=== PATIENT | male | born 1960 | race Caucasian/White ===

== ENCOUNTER → 2017-01-30 | Outpatient (REF) | payer OTHER, SELFPAY | LOC: M LAB REF 13:25 | PROVIDERS: ATTEND Dentist Oral and Maxillofacial Surgery | DX: C03.9 Malignant neoplasm of gum, unspecified (principal) ==

== ENCOUNTER → 2017-05-22 | Outpatient (CLI) | payer BC | LOC: M ONCR 08:56 | DX: C41.1 Malignant neoplasm of mandible (principal) | CPT/HCPCS: G0463 ==

== ENCOUNTER 2017-06-04 09:34 | Outpatient (RCR) | payer BC | END 2017-06-06 | LOC: M ONCR 06-05 09:34 | DX: C41.1 Malignant neoplasm of mandible (principal) | CPT/HCPCS: 77334 ==

== ENCOUNTER 2017-06-04 14:01 | Outpatient (CLI) | payer BC | END 2017-08-29 | LOC: M ONCR 14:01 | DX: C41.1 Malignant neoplasm of mandible (principal) | CPT/HCPCS: G0463 ==

== ENCOUNTER → 2017-06-04 | Outpatient (CLI) | payer BC | LOC: M RAD 13:55 | DX: C41.1 Malignant neoplasm of mandible (principal); Z88.0 Allergy status to penicillin ==

== ENCOUNTER 2017-06-07 09:38 | Outpatient (RCR) | payer BC | END 2017-07-04 | LOC: M ONCR 09:38 | DX: C41.1 Malignant neoplasm of mandible (principal) | CPT/HCPCS: 77300 ==

== ENCOUNTER 2017-06-14 08:09 | Day surgery (SDC) | payer BC ==
[2017-06-14] MEDS: NS 1,000 ML IV (08:29)
[2017-06-14] MEDS ORDERED: PROPOFOL 200 MG/20 ML VIAL As Ordered ×3 (09:07→09:13)
[2017-06-14] MEDS ORDERED: LIDOCAINE 2% INJ 100 MG/5 ML SDV (FOR ANES.) As Ordered (09:07)
[2017-06-14] MEDS ORDERED: LevoFLOXacin(LEVAQUIN)500 MG/100 ML BAG (J1956) As Ordered (09:46)
[2017-06-14] MEDS ORDERED: NORCO, ANEXSIA 5/325MG TABLET (HYDROcodone/ACETAMINOPHEN) PO (10:00)
[2017-06-14] MEDS ORDERED: NS 1,000 ML IV (10:00)
[2017-06-14] MEDS: LevoFLOXacin IV 500 MG in APPROPRIATE DILUENT 1 EA IV (10:00)
[2017-06-14] MEDS ORDERED: MORPHINE 2 MG/ML 1ML SYRINGE (J2270) IV (10:00)
[2017-06-14] MEDS: KETOROLAC 30 MG/ML VIAL (J1885) IV (10:42)
[2017-06-15] MEDS ORDERED: MORPHINE 4 MG/ML 1ML VIAL (J2270) IV (08:15)
== END 2017-06-14 15:10 | disposition home or self-care (01) ==
LOC: M OPP 15:10
DX: R13.10 Dysphagia, unspecified (principal); C41.1 Malignant neoplasm of mandible; R06.83 Snoring; Z88.0 Allergy status to penicillin
CPT/HCPCS: 43246

== ENCOUNTER 2017-06-22 12:16 | Outpatient (RCR) | payer BC | END 2017-07-04 | LOC: M ST 12:16 | DX: Z51.89 Encounter for other specified aftercare (principal); R13.10 Dysphagia, unspecified | CPT/HCPCS: 92610 ==

== ENCOUNTER 2017-07-05 10:26 | Outpatient (RCR) | payer BC | END 2017-08-04 | LOC: M ONCR 10:26 | DX: C41.1 Malignant neoplasm of mandible (principal) | CPT/HCPCS: 77300 ==

== ENCOUNTER → 2017-12-05 | Outpatient (CLI) | payer BC | LOC: M ONCR 15:07 | DX: C41.1 Malignant neoplasm of mandible (principal) | CPT/HCPCS: G0463 ==

== ENCOUNTER → 2018-02-21 | Outpatient (REF) | payer BC ==
[2018-02-21 17:41] LABS: ANION GAP 8 MEQ/L (8-16); BLOOD UREA NITROGEN 16 MG/DL (7-18); CALCIUM LEVEL 8.5 MG/DL (8.5-10.1); CARBON DIOXIDE LEVEL 28 MEQ/L (21-32); CHLORIDE LEVEL 105 MEQ/L (98-107); CHOLESTEROL LEVEL 174 MG/DL (<200); CREATININE FOR GFR 0.96 MG/DL (0.70-1.30); GLOMERULAR FILTRATION RATE > 60.0 (>56); GLUCOSE, FASTING 80 MG/DL (70-100); HDL CHOLESTEROL 50 MG/DL (>40); LDL CHOLESTEROL 115 MG/DL (<100); NON-HDL-C 124 MG/DL; POTASSIUM SERUM 4.1 MEQ/L (3.5-5.1); PSA SCREENING 0.68 NG/ML (< 4.0); SODIUM LEVEL 141 MEQ/L (136-145); TRIGLYCERIDES LEVEL 46 MG/DL (<150)
[2018-02-21 17:56] LABS: ESTIMATED AVERAGE GLUCOSE 108 MG/DL (60-110); HEMOGLOBIN A1c 5.4 %
== END ==
LOC: M SFHCPLAZ 15:10
DX: Z13.1 Encounter for screening for diabetes mellitus (principal); Z13.220 Encounter for screening for lipoid disorders; Z12.5 Encounter for screening for malignant neoplasm of prostate

== ENCOUNTER → 2019-01-24 | Outpatient (CLI) | payer BC ==
[~2019-01-24] MED LIST: GLUC1CAP10 PO; MULT1TAB10 PO; NYST50SS SS; PERC5TAB12 PO
[2019-01-24 09:08] LABS: BASO % 0.2 % (0.0-1.0); EOS # 0.1 10^3/uL (0.0-0.5); EOS % 0.9 % (0.0-3.0); HEMATOCRIT 43.2 % (42.0-52.0); HEMOGLOBIN 14.8 g/dl (13.5-17.5); LYMPH # 0.8 10^3/uL (1.5-5.0); MEAN CORPUSCULAR HGB CONC 34.3 g/dl (32.0-36.5); MEAN CORPUSCULAR VOLUME 90.4 fl (80.0-96.0); MONO # 0.5 10^3/uL (0.0-0.8); MONO % 8.6 % (0.0-5.0); NEUTROPHILS % 75.1 % (36.0-66.0); PLATELET COUNT, AUTOMATED 176 10^3/uL (150-450); RED BLOOD COUNT 4.78 10^6/uL (4.30-6.10); WHITE BLOOD COUNT 5.4 10^3/uL (4.0-10.0)
--- NOTE | 2019-01-24 09:24 | REPVR ---
PROCEDURE INFORMATION: Exam: CT Neck Without Contrast Exam date and time: 01/24/2019 8:43 AM Clinical history: 59 years old, male; Condition or disease; Other: Dental; Prior surgery; Surgery date: 6+ months; Surgery type: Titanium plate in jaw. . Cancer removed; Patient HX: PT states screw are working out of plate, , , several screws are now visible outside the skin; Additional info: Cancer, of oral ccavity TECHNIQUE: Imaging protocol: Computed tomography images of the neck without contrast. Radiation optimization: All CT scans at this facility use at least one of these dose optimization techniques: automated exposure control; mA and/or kV adjustment per patient size (includes targeted exams where dose is matched to clinical indication); or iterative reconstruction. COMPARISON: CT Neck with contrast 03/09/2017 2:15 PM FINDINGS: Nasopharynx: Unremarkable. Oropharynx: Unremarkable. No significant tonsillar enlargement. Hypopharynx: Unremarkable Larynx: Unremarkable. Normal epiglottis. Retropharyngeal space: Unremarkable. Submandibular/Parotid glands: See Bones/joints Finding. Thyroid: The thyroid gland is normal. Lymph nodes: Unremarkable. No lymphadenopathy. Trachea: Visualized trachea is unremarkable. Lungs: Unremarkable as visualized. Bones/joints: There is a flexible metal strap supporting the bone graft of the left mandibular body. The overlying skin is quite thin anteriorly presumably accounting for the clinical presentation of the screws. The position of the screws relative to the mandible is acceptable. There is suspicion of nonunion of the bone graft with the posterior mandible on sagittal image 44 in the plane of coronal image 3. There is no obvious focus of bony destructive change or soft tissue mass to suggest recurrent tumor. PET scan could be helpful if this is a clinical concern. Soft tissues: See Bones/joints Finding. IMPRESSION: 1. There is a flexible metal strap supporting the bone graft of the left mandibular body. The overlying skin is quite thin anteriorly presumably accounting for the clinical presentation of the screws. The position of the screws relative to the mandible is acceptable. 2. There is suspicion of nonunion of the bone graft with the posterior mandible on sagittal image 44 in the plane of coronal image 3. 3. There is no obvious focus of bony destructive change or soft tissue mass to suggest recurrent tumor. PET scan could be helpful if this is a clinical concern. Electronically signed by: Anshu Velarde On 01/24/2019 09:24:01 AM
[2019-01-24 09:25] LABS: INR 1.12; PROTHROMBIN TIME 14.1 SECONDS (11.8-14.0)
[2019-01-24 09:26] LABS: PARTIAL THROMBOPLASTIN TIME 27.4 SECONDS (25.0-38.4)
[2019-01-24 09:33] LABS: BLOOD UREA NITROGEN 18 MG/DL (7-18); CALCIUM LEVEL 9.5 MG/DL (8.8-10.2); CARBON DIOXIDE LEVEL 30 MEQ/L (21-32); CHLORIDE LEVEL 105 MEQ/L (98-107); CREATININE FOR GFR 1.02 MG/DL (0.70-1.30); GLOMERULAR FILTRATION RATE > 60.0 (>49); GLUCOSE, FASTING 102 MG/DL (70-100); POTASSIUM SERUM 4.6 MEQ/L (3.5-5.1); SODIUM LEVEL 141 MEQ/L (136-145)
== END ==
LOC: M RAD 08:18
DX: C06.9 Malignant neoplasm of mouth, unspecified (principal)

== ENCOUNTER → 2019-06-19 | Outpatient (CLI) | payer BC ==
--- NOTE | 2019-06-19 12:28 | REP ---
Clinical: Left lower quadrant pain. Technique: Two supine views of the abdomen and pelvis. Findings: Bowel gas pattern is essentially nonspecific. No organomegaly. No abnormal calcifications. Skeletal structures are intact. Impression: Nonspecific bowel gas pattern. Electronically Signed by Gerardo Stout MD 06/19/2019 12:20 P
== END ==
LOC: M RAD 11:24
PROVIDERS: ATTEND Physician Assistant
DX: R10.32 Left lower quadrant pain (principal)

== ENCOUNTER → 2019-06-19 | Outpatient (REF) | payer BC | LOC: M LAB REF 11:26 | PROVIDERS: ATTEND Physician Assistant | DX: R10.9 Unspecified abdominal pain (principal) ==

== ENCOUNTER 2019-06-28 17:32 | Inpatient (IN) | payer BC ==
[~2019-06-28] VITALS: Ht 182.9 cm; Wt 82.1 kg
[2019-06-28] MEDS ORDERED: NS 1,000 ML IV SCH (17:58)
[2019-06-28] MEDS ORDERED: ACETAMINOPHEN TAB 650MG DOSE (2X325MG) PO ONE (18:00)
[2019-06-28 18:27] LABS: BASO % 0.1 % (0.0-1.0); EOS % 0.1 % (0.0-3.0); HEMOGLOBIN 12.3 g/dl (13.5-17.5); LYMPH # 0.7 10^3/uL (1.5-5.0); LYMPH % 6.3 % (24.0-44.0); MEAN CORPUSCULAR HEMOGLOBIN 30.4 pg (27.0-33.0); MEAN CORPUSCULAR HGB CONC 34.2 g/dl (32.0-36.5); MEAN CORPUSCULAR VOLUME 88.9 fl (80.0-96.0); MONO % 8.7 % (0.0-5.0); NEUTROPHILS # 9.8 10^3/uL (1.5-8.5); NEUTROPHILS % 84.2 % (36.0-66.0); PLATELET COUNT, AUTOMATED 418 10^3/uL (150-450); RED BLOOD COUNT 4.05 10^6/uL (4.30-6.10); WHITE BLOOD COUNT 11.6 10^3/uL (4.0-10.0)
[2019-06-28] MEDS: GASTROGRAFIN SOLUTION 30ML PO SCH ×2 (18:30→18:57)
[2019-06-28] MEDS ORDERED: ACETAMINOPHEN 325 MG/10.15 ML UDC PO ONE (18:45)
[2019-06-28 19:00] LABS: BILIRUBIN,DIRECT 0.3 MG/DL (0.0-0.2); BILIRUBIN,TOTAL 0.8 MG/DL (0.2-1.0); CALCIUM LEVEL 8.8 MG/DL (8.8-10.2); CREATININE FOR GFR 1.6 MG/DL (0.70-1.30); GLOMERULAR FILTRATION RATE 47.2 (>49); POTASSIUM SERUM 4.2 MEQ/L (3.5-5.1); TOTAL PROTEIN 7.4 GM/DL (6.4-8.2)
[2019-06-28 19:08] LABS: INFLUENZA A AMPLIFICATION NEGATIVE (NEGATIVE); INFLUENZA B AMPLIFICATION NEGATIVE (NEGATIVE)
[2019-06-28] MEDS ORDERED: ISOVUE-370 76% 100ML VIAL (Q9967) As Ordered ONE (19:41)
--- NOTE | 2019-06-28 20:39 | REPVR ---
PROCEDURE INFORMATION: Exam: CT Abdomen And Pelvis With Contrast Exam date and time: 06/28/2019 7:42 PM Age: 59 years old Clinical indication: Abdominal pain; Localized; Left lower quadrant (llq); Additional info: Llq pain, fever TECHNIQUE: Imaging protocol: Computed tomography of the abdomen and pelvis with intravenous contrast. Radiation optimization: All CT scans at this facility use at least one of these dose optimization techniques: automated exposure control; mA and/or kV adjustment per patient size (includes targeted exams where dose is matched to clinical indication); or iterative reconstruction. Contrast material: ISOVUE 370; Contrast volume: 100 ml; Contrast route: IV; COMPARISON: CT ABD PELVIS W/O FOL BY WIT 03/09/2017 2:15 PM FINDINGS: Lungs: Linear atelectasis and/or scar in the lung bases. Liver: Diffuse fatty infiltration of the liver. Tiny cyst within the dome of the liver, unchanged. Gallbladder and bile ducts: Unremarkable. No calcified stones. No ductal dilation. Pancreas: Unremarkable. No ductal dilation. Spleen: Small calcified granulomas within the spleen. Adrenals: Normal. No mass. Kidneys and ureters: Right renal cyst measuring 7 cm and right renal peripelvic cysts are present. No right renal stone or hydronephrosis. Large cystic mass measuring approximately 10 cm x 8 cm x 7 cm within the left renal sinus and extending medially obliterating the left renal pelvis and extending into the medial and inferior left perirenal space with stranding and hazy density of the surrounding perirenal fat. There is extension of cystic masses into the left psoas muscle. There is a delay in left renal nephrogram and pyelogram. The left mid and distal ureter has a normal caliber. Stomach and bowel: Unremarkable. No obstruction. No mucosal thickening. Appendix: No evidence of appendicitis. Intraperitoneal space: Trace pelvic ascites. Vasculature: Mild atherosclerosis of the abdominal aorta and iliac arteries. No aneurysm. Lymph nodes: Unremarkable. No enlarged lymph nodes. Bladder: Unremarkable as visualized. Reproductive: Unremarkable as visualized. Bones/joints: No acute fracture. IMPRESSION: New large cystic mass within the left renal sinus, obliterating the left renal pelvis and extending into the left perirenal space and left psoas muscle. Differential diagnosis includes cystic neoplasm (with possible underlying infection) versus left renal abscesses with extension into the psoas muscle. Electronically signed by: Benjamin Bryson On 06/28/2019 20:39:24 PM
[2019-06-28] MEDS ORDERED: MEROPENEM INJ 1 GM in IV 1 EA IV ONE (21:00)
[2019-06-28] MEDS ORDERED: MULT-40 PO (21:09)
[2019-06-28] MEDS ORDERED: NS 1,000 ML IV ONE ×2 (21:30→22:30)
[2019-06-28 21:50] LABS: C REACTIVE PROTEIN QUANTITATIV 13.7 MG/DL (0.00-0.30)
[2019-06-28 22:05] LABS: ERYTHROCYTE SEDIMENTATION RATE 96 mm/hr (0-20)
[2019-06-28] MEDS ORDERED: PERCOCET 5MG/325MG TAB PO ONE (23:15)
[2019-06-28] MEDS ORDERED: MORPHINE 2 MG/ML 1ML VIAL (J2270) IV ONE (23:15)
[2019-06-28] MEDS ORDERED: PERCOCET 5MG/325MG TAB PO PRN (23:30)
[2019-06-28] MEDS ORDERED: cefTRIAXone SOD 2 GM VIAL (J0696 PER 250MG) IM SCH (23:30)
[2019-06-29] MEDS: MORPHINE 4 MG/ML 1ML VIAL/SYRINGE (J2270) IV PRN ×3 (00:05→08:31)
[2019-06-29] MEDS: cefTRIAXone SOD 2 GM in D5W MINI-BAG PLUS 50 ML IV SCH ×2 (00:05→23:06)
[2019-06-29 02:00] VITALS: BP 158/89
[2019-06-29] MEDS ORDERED: VANCOMYCIN HCL 1,000 MG, VIAL MATE ADAPTER 1 EACH in D5W 250 ML IV ONE (02:00)
--- NOTE | 2019-06-29 05:13 | PHACANCOPD ---
PHARMACY VANCOMYCIN DOSING Pt Demographics Demographics Patient Age:59 , Weight:82.100 , Gender: male Adjusted Body Weight Date: 06/29/19, Adjusted Body Weight: [80.3] Kg Vancomycin Vancomycin indication: RENAL ABCESS Vancomycin Target Ranges: 10-20 mcg/ml Vancomycin Load Y/N: No Load Dose Date Time Vancomycin Load Dose: Date: Time: Vancomycin Dose Date: 06/29/19. Current Vancomycin Dose: [1GM Q12H] Intermittent Dosing?: No Labs Micro Microbiology 06/28/19 Blood Culture, Received Pending 06/28/19 Blood Culture, Received Pending Creatinine Clearance Date:06/29/19. Creatinine Clearance: [55.8].CALCULATED Assessment and Plan Maintaining Current Dose?: Yes Reason for dose change: No Dose Change Pharmacist Note Pharmacist Note Date: 06/29/19. Pharmacist note:59 YOM HT:72",WT:84.3KG,scr:1.6,crcl:55.8 CALCULATED,ALLERGY:PENICILLIN:Admisson d/t renal abcess.TX w/ceftriaxone 2 gm q24h and Pharmacy dosed Vancomycin(trough goal 10-20).Vancomycin 1 gm administered [id number],then will begil 1 gram iv [id number] regimen @0900 this morning(6 hrs after first dose) trough is scheduled for 06/30@0800(prior to the 4th dose) [facility] Jun 29, 2019 05:13
[2019-06-29 06:00] VITALS: BP 119/74
[2019-06-29 06:34] LABS: HEMATOCRIT 31.3 % (42.0-52.0); HEMOGLOBIN 10.7 g/dl (13.5-17.5); MEAN CORPUSCULAR HEMOGLOBIN 30.7 pg (27.0-33.0); MEAN CORPUSCULAR HGB CONC 34.2 g/dl (32.0-36.5); MEAN CORPUSCULAR VOLUME 89.7 fl (80.0-96.0); PLATELET COUNT, AUTOMATED 368 10^3/uL (150-450); RED BLOOD COUNT 3.49 10^6/uL (4.30-6.10); WHITE BLOOD COUNT 10.7 10^3/uL (4.0-10.0)
[2019-06-29 06:59] LABS: CALCIUM LEVEL 7.8 MG/DL (8.8-10.2); CREATININE FOR GFR 1.34 MG/DL (0.70-1.30); GLOMERULAR FILTRATION RATE 57.9 (>49); POTASSIUM SERUM 3.9 MEQ/L (3.5-5.1)
--- NOTE | 2019-06-29 08:07 | REP ---
PA and lateral chest: There are no comparisons. The lung martell are clear. The cardiac size is normal. The amanda, mediastinum, and skeletal structures are unremarkable. Impression: Negative PA and lateral chest. Electronically Signed by Ibrahima Amaro MD 06/29/2019 07:59 A
[2019-06-29] MEDS: VANCOMYCIN HCL 1,000 MG, VIAL MATE ADAPTER 1 EACH in D5W 250 ML IV SCH ×2 (08:21→20:56)
[2019-06-29] MEDS: MULTIVITAMINS/MINERALS THERAP 1 TAB PO SCH (08:35)
--- NOTE | 2019-06-29 09:28 | SMCUROLCON ---
Urology Consultation General Date of Consultation 06/29/19 Reason For Consultation This patient is seen for Renal Mass, Left. History of Present Illness The patient is a 59 year old male who has been ill for two weeks with fever, chills, constipation and lower abdominal and left sided back pain. He was pamela luated at an immediate care clinic and felt to possibly have diverticulitis. He presented here to the ER yesterday with increased pain. He has noted some hesitancy of urination which has been present for several years. He had problems with retention in the past requiring catheter placement when he underwent head an neck cancer surgery. He has noted no dysuria, no gross hematuria. He has had no history of UTIs, kidney stones or prior urologic surgery. His Ct scan reveals multiple bilateral renal cysts, especially prominent on the left with extensive parapelvic left renal cysts and some compression of the left renal collecting system. I reviewed a Ct scan of the chest from March 2017 which imaged only the upper pole of the left kidney and showed similar findings. 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" Medications Current Medications Current Medications Medications (Trade) Dose Ordered Sig/Thai Route PRN Reason Start Time Stop Time Status Last Admin Dose Admin Ceftriaxone Sodium 2 gm/ Dextrose 50 ml @ 50 mls/hr Q24H IV 06/28/19 23:00 06/29/19 00:05 Ceftriaxone Sodium (Rocephin) 2 gm Q24H IM 06/28/19 23:30 06/28/19 23:34 DC Diatrizoate Meglum/ Diatrizoate Sod (Gastrografin) 10 ml Q30M PO 06/28/19 18:30 06/28/19 19:01 DC 06/28/19 18:57 Home Med (Med Rec Complete!) ASDIRECTED XX 06/28/19 21:15 06/28/19 21:11 DC Morphine Sulfate (Morphine Sulfate Inj) 3 mg Q3HP PRN IV SEVERE PAIN (PS 8-10) 06/28/19 23:30 06/29/19 08:31 Multivitamins (Theragram-M) 1 tab DAILY PO 06/29/19 09:00 Oxycodone/ Acetaminophen (Percocet 5mg/ 325mg Tablet) 1 tab Q4HP PRN PO MILD/MODERATE PAIN (PS 1-7) 06/28/19 23:30 Sodium Chloride 1,000 ml @ 150 mls/hr Q6H40M IV 06/28/19 17:58 06/29/19 02:04 DC 06/28/19 18:29 Vancomycin HCl 1000 mg/IV Miscellaneous Supplies 1 each/ Dextrose 270 ml @ 270 mls/hr Q12H IV 06/29/19 09:00 06/29/19 08:21 Allergies Allergies: Coded Allergies: Penicillins (Verified Allergy, Mild, HIVES, 06/28/19) Physical Examination General Exam: Alert, Cooperative, No Acute Distress, Other (defect left mandible present) EYE EXAM: Conjunctiva & lids normal, EOMI ENT EXAM: Other ENT (defect left mandible ) Chest Exam: Normal air movement Abdomen Exam: Soft, Other (mildy distended, not tender); No: Tenderness, Mass Male Exam: Normal Genital Exam (us catheter in place draining clear urine) Extremity Exam: No: Clubbing, Cyanosis, Edema Neuro Exam: Normal Speech Psych Exam: Mental status NL Vital Signs/I&O Vital Signs Date Time Temp Pulse Resp B/P (MAP) Pulse Ox O2 Delivery O2 Flow Rate FiO2 06/29/19 08:31 18 06/29/19 06:00 98.3 71 119/74 (89) 97 Room Air I&O- Last 24 Hours up to 6 AM 06/29/19 05:59 Intake Total 1050 ml Output Total 669 ml Balance 381 ml Laboratory Data 24H Labs Laboratory Tests 2 06/28/19 18:15: 06/28/19 18:16: Immature Granulocyte % (Auto) 0.6, Neutrophils (%) (Auto) 84.2H, Lymphocytes (%) (Auto) 6.3L, Monocytes (%) (Auto) 8.7H, Eosinophils (%) (Auto) 0.1, Basophils (%) (Auto) 0.1, Neutrophils # (Auto) 9.8H, Lymphocytes # (Auto) 0.7L, Monocytes # (Auto) 1.0H, Eosinophils # (Auto) 0.0, Basophils # (Auto) 0.0, Nucleated Red Blood Cells % (auto) 0.0, Erythrocyte Sedimentation Rate 96H, Urine Color YELLOW, Urine Appearance CLEAR, Urine pH 7.0, Urine Specific [place] 1.013, Urine Protein NEGATIVE, Urine Glucose (UA) NEGATIVE, Urine Ketones NEGATIVE, Urine Blood NEGATIVE, Urine Nitrite NEGATIVE, Urine Bilirubin NEGATIVE, Urine Urobilinogen 0.2, Urine Leukocyte Esterase NEGATIVE, Urine WBC (Auto) 1, Urine RBC (Auto) 2, Urine Hyaline Casts (Auto) 0, Urine Bacteria (Auto) 1+H, Urine Squamous Epithelial Cells 0, Urine Mucus (Auto) SMALL, Urine Sperm (Auto) , Anion Gap 6L, Glomerular Filtration Rate 47.2L, Calcium Level 8.8, Total Bilirubin 0.8, Direct Bilirubin 0.3H, Aspartate Amino Transf (AST/SGOT) 18, Alanine Aminotransferase (ALT/SGPT) 59, Alkaline Phosphatase 117, C-Reactive Protein, Quantitative 13.70H, Total Protein 7.4, Albumin 3.0L, Albumin/Globulin Ratio 0.68L, Lipase 94, Influenza Type A (RT-PCR) NEGATIVE, Influenza Type B (RT-PCR) NEGATIVE 06/29/19 06:02: Nucleated Red Blood Cells % (auto) 0.0, Anion Gap 6L, Glomerular Filtration Rate 57.9, Calcium Level 7.8L CBC/BMP Laboratory Tests 06/28/19 18:16 06/29/19 06:02 Microbiology Microbiology 06/28/19 Blood Culture, Received Pending 06/28/19 Blood Culture, Received Pending Assessment 1. Multiple bilateral renal cysts, more prominent on left with extensive parapelvic renal cysts, with some compression of left renal collecting system, no evidence of neoplasm or abscess by my interpretation, will confirm with MRI 2. Lower urinary tract symptoms , longstanding 3. Abdominal pain and fever, etiology not clear 4. History of surgery and radiation for mandibular cancer Plan 1. MRI kidneys to more carefully evaluate left renal cysts 2. Tamsulosin for lower urinary tract symptoms BINA JONES MD Jun 29, 2019 09:28
[2019-06-29] MEDS ORDERED: PROHANCE 279.3MG/ML 5ML VIAL (A9576) As Ordered ONE (10:39)
[2019-06-29] MEDS ORDERED: ONDANSETRON 4MG/2ML VIAL (J2405) IV ONE (11:00)
--- NOTE | 2019-06-29 12:19 | REPVR ---
PROCEDURE INFORMATION: Exam: MR Abdomen Without and With Contrast Exam date and time: 06/29/2019 11:34 AM Age: 59 years old Clinical indication: Abnormal findings; Abnormal radiologic finding of the abdomen; Radiologic exam and body structure: CT; Patient HX: HX jaw CA; Additional info: Left renal cystic mass seen on CT TECHNIQUE: Imaging protocol: MR of the abdomen without and with intravenous contrast. Contrast material: PROHANCE; Contrast volume: 8 ml; Contrast route: IV; COMPARISON: CT ABD/PEL W/IV ORAL CONTRAS 06/28/2019 7:40 PM FINDINGS: Mild hepatomegaly with the right liver measuring 21.1 cm. Small cyst in the superior liver. No suspicious hepatic mass. Distended gallbladder without pericholecystic inflammation. No intrahepatic or extrahepatic biliary ductal dilation. Numerous bilateral renal peripelvic cysts are present. A dominant right renal cyst measures 7 cm diameter. Again noted is a large cystic mass extending from the left renal pelvis into the medial pararenal soft tissues, with extensive regional inflammation and fluid accumulation extending throughout the retroperitoneum extending inferiorly along the psoas muscle. There is mild adjacent psoas myositis. There is thin enhancement along the [place] of the cystic lesion, with no dominant masslike enhancement. Diffusion-weighted imaging was not performed to help determine the presence of an abscess. There is no evidence of invasion of the renal artery or vein, or inferior vena cava. No retroperitoneal lymphadenopathy within the imaged abdomen. Mild splenomegaly. IMPRESSION: Large multilobulated left renal cystic mass with extensive regional inflammation extending throughout the retroperitoneal space. There is enhancement along the [place] of the cyst, with no single dominant masslike focus of enhancement. Differential considerations include superinfected cystic neoplasm, infection with renal/perirenal abscess extending into the retroperitoneal space, or inflammation associated with sterile cyst rupture. Would consider aspiration/fluid sampling for further assessment. Mild hepatosplenomegaly. Electronically signed by: Aiden Harper On 06/29/2019 12:18:35 PM
--- NOTE | 2019-06-29 12:57 | HPE ---
DATE OF ADMISSION: 06/28/2019 CHIEF COMPLAINT: Fever, abdominal pain, back pain. 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 Day Gonzalez and Dr. Coats, knee and ankle osteoarthritis, who was in his usual state of health until 2 weeks ago when he noticed back pain, which was described as sharp and severe without any radiation with left lower quadrant abdominal pain accompanied with nausea once with non bilious, non projectile vomiting, fever that started this morning of 102, difficulty walking due to severe pain in the back, and decreased urination and constipation. The patient also noted some night sweats for the past few days. He denies any bright red blood per rectum, melena, black tarry stools or gross hematuria. Denies any dysuria, urgency, frequency, difficulty starting her urine. The patient took some ibuprofen one to two throughout the day today, but he has chronic difficulty swallowing and presented to the emergency room for further evaluation. He otherwise denies any sick contacts, shortness of breath, chest pain, pressure, tightness, palpitations, lightheadedness. Denies any upper or lower extremity weakness. Unable to ambulate well due to severe pain when he moves. No prior history of this in the past. In the emergency room, he was found to have a temperature of 100.7, white count of 11.6. CT of the abdomen and pelvis showed a large cystic mass within the left renal sinus, obliterating the left renal pelvis and extending into the left pararenal space and left psoas muscle. Differential diagnosis includes cystic neoplasm with probable underlying infection versus left renal abscesses with extension into the psoas muscle. Urologist, Dr. Da Silva, had been contacted by emergency room physician and will see the patient in the morning. Per Dr. Dennis, emergency room physician, most likely due to malignancy. He did receive vancomycin and ceftriaxone in the emergency room for potential infection. Urinalysis was unremarkable with 1+ bacteria, otherwise 1 WBC, negative nitrite and leukocyte esterase. Influenza A and B are negative. Chest x-ray showed no acute abnormality. The hospitalist was called to admit for left renal mass, cystic neoplasm versus infection with extension into the psoas muscle. PAST MEDICAL HISTORY: 1. Stage IV squamous cell cancer of the left mandible and alveolar ridge, status post resection, external beam radiation, chemotherapy. Sees Dr. Day Gonzalez and Dr. Coats. 2. Knee and ankle osteoarthritis. PAST SURGICAL HISTORY: 1. Left mandibular and alveolar ridge resection 04/2018. 2. Vasectomy. ALLERGIES: PENICILLIN causing hives. FAMILY HISTORY: Father with prostate cancer. Mother of heart disease. Paternal uncle decreased of pancreatic cancer. Sister had a hysterectomy. SOCIAL HISTORY: The patient drinks two to three beers every week, worked in the [employer] industry. Lives with at home. Denies any recreational drug use. Currently no cigarette use. REVIEW OF SYSTEMS: As per history of present illness. HOME MEDICATIONS: - glucosamine chondroitin one capsule daily - multivitamin one tablet daily PHYSICAL EXAMINATION: VITAL SIGNS: Temperature 100.7, pulse 84, respiratory rate 16, blood pressure 157/88, 99% on room air. GENERAL: The patient is awake, alert, oriented times three. Anicteric sclerae. No jaundice. Appears older than his stated age. Extraocular muscles are intact. Status post surgery in the left mandible with a well healed scar. No cervical, supraclavicular, infraclavicular, axillary lymph nodes. Left side of neck has surgical scars, which are well healed. LUNGS: Clear to auscultation. No wheezing, rales or rhonchi. HEART: S1, S2. Sinus rhythm. ABDOMEN: Soft, slightly tender in the left lower quadrant. No rebound or guarding. Positive bowel sounds times four quadrants. No costovertebral angle tenderness bilaterally. EXTREMITIES: No cyanosis, clubbing or any pitting edema. LABORATORY DATA : White count 11.6, hemoglobin 12.3, hematocrit 36, platelet count 418. Sodium 132, potassium 4.2, chloride 99, bicarbonate 27, BUN 21, creatinine 1.6, glucose 96, calcium 8.8, total bilirubin 0.8, direct bilirubin 0.3, AST 18, ALT 59, alkaline phosphatase 117, albumin 3.0. Microbiology: Urinalysis with negative nitrite, 1 WBC, negative bacteria, negative leukocyte esterase. Blood culture pending. IMAGING STUDIES: CT of the abdomen and pelvis with new large cystic mass within the left renal sinus obliterating the left renal pelvis and extending into the left perirenal space and left psoas muscle. Differential diagnosis includes cystic neoplasm with possible underlying infection versus left renal abscesses with extension into the psoas muscle. 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 Day Gonzalez and Dr. Caots, knee and ankle osteoarthritis, who presents to the emergency room with a 2-wee history of back pain, left lower quadrant abdominal pain, nausea, vomiting, and today difficulty urinating and fever of 102 at home. The patient had a CT done showing a new large cystic mass in the left renal pelvis. IMPRESSION: 1. Left renal cystic mass, differential diagnosis if cystic neoplasm with underlying infection versus left renal abscesses with extension into the psoas muscle. The patient is admitted to the medical/surgical floor, given vancomycin and ceftriaxone. Dr. Da Silva has been consulted. Blood culture has been sent. Percocet one tablet every 4 hours as needed for pain and morphine intravenously for severe breakthrough pain. IV fluids for acute renal failure, 150 mL per hour. Bladder scan every 4 hours, if greater than 250 post void residual then Young catheter. 2. Acute renal failure. Intravenous fluid trial. Young catheter if more than 300 mL postvoid residual. Renal diet. Renally dose all medications and avoid nephrotoxins. 3. 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 Outpatient followup. 4. Deep vein thrombosis (DVT) prophylaxis with compression stockings. MTDD
[2019-06-29] MEDS ORDERED: ONDANSETRON 4 MG TAB (S0181) PO PRN (13:15)
[2019-06-29] MEDS ORDERED: BISACODYL 5 MG TAB PO PRN (13:15)
[2019-06-29 14:00] VITALS: BP 123/74
--- NOTE | 2019-06-29 14:07 | IPNPDOC ---
Subjective Review oF Systems Chief Complaint The patient is a 59-year-old male admitted with a reason for visit of Renal Mass, Left. Events since Last Encounter I reviewed the images of the CT scan and MRI with the radiologist change person. I feel that there are multiple left renal cysts, including large parapelvic renal cysts that have been present since at least imaging done with chest CT scan in 2017. There are changes of perinephric inflammation present. There is not a solid renal mass present. There is not a definite abscess present. I would favor proceeding with Ct or ultrasound guided aspiration, biopsy and possible drain placement by interventional radiology. I discussed this with the patient. Objective Physical Examination General Exam: Alert, Cooperative, No Acute Distress Vital Signs/I&O Vital Signs Date Time Temp Pulse Resp B/P (MAP) Pulse Ox O2 Delivery O2 Flow Rate FiO2 06/29/19 08:41 16 06/29/19 06:00 98.3 71 119/74 (89) 97 Room Air I&O- Last 24 Hours up to 6 AM 06/29/19 05:59 Intake Total 1050 ml Output Total 669 ml Balance 381 ml Laboratory Data Labs 24H Laboratory Tests 2 06/28/19 18:15: 06/28/19 18:16: Immature Granulocyte % (Auto) 0.6, Neutrophils (%) (Auto) 84.2H, Lymphocytes (%) (Auto) 6.3L, Monocytes (%) (Auto) 8.7H, Eosinophils (%) (Auto) 0.1, Basophils (%) (Auto) 0.1, Neutrophils # (Auto) 9.8H, Lymphocytes # (Auto) 0.7L, Monocytes # (Auto) 1.0H, Eosinophils # (Auto) 0.0, Basophils # (Auto) 0.0, Nucleated Red Blood Cells % (auto) 0.0, Erythrocyte Sedimentation Rate 96H, Urine Color YE LLOW, Urine Appearance CLEAR, Urine pH 7.0, Urine Specific [place] 1.013, Urine Protein NEGATIVE, Urine Glucose (UA) NEGATIVE, Urine Ketones NEGATIVE, Urine Blood NEGATIVE, Urine Nitrite NEGATIVE, Urine Bilirubin NEGATIVE, Urine Urobilinogen 0.2, Urine Leukocyte Esterase NEGATIVE, Urine WBC (Auto) 1, Urine RBC (Auto) 2, Urine Hyaline Casts (Auto) 0, Urine Bacteria (Auto) 1+H, Urine Squamous Epithelial Cells 0, Urine Mucus (Auto) SMALL, Urine Sperm (Auto) , Anion Gap 6L, Glomerular Filtration Rate 47.2L, Calcium Level 8.8, Total Bilirubin 0.8, Direct Bilirubin 0.3H, Aspartate Amino Transf (AST/SGOT) 18, Alanine Aminotransferase (ALT/SGPT) 59, Alkaline Phosphatase 117, C-Reactive Protein, Quantitative 13.70H, Total Protein 7.4, Albumin 3.0L, Albumin/Globulin Ratio 0.68L, Lipase 94, Influenza Type A (RT-PCR) NEGATIVE, Influenza Type B (RT-PCR) NEGATIVE 06/29/19 06:02: Nucleated Red Blood Cells % (auto) 0.0, Anion Gap 6L, Glomerular Filtration Rate 57.9, Calcium Level 7.8L CBC/BMP Laboratory Tests 06/28/19 18:16 06/29/19 06:02 Microbiology Microbiology 06/28/19 Blood Culture, Received Pending 06/28/19 Blood Culture, Received Pending Assessment/Plan Date Seen The patient was seen on 06/29/19. Plan/VTE VTE Prophylaxis Ordered?: Yes Plan Will request interventional radiology to carry out CT or ultrasound guided aspiration, biopsy, drain placement of left perinephric fluid collection BINA JONES MD Jun 29, 2019 14:06
[2019-06-29] MEDS: ACETAMINOPHEN TAB 650MG DOSE (2X325MG) PO PRN ×2 (14:50→21:36)
--- NOTE | 2019-06-29 15:34 | IPNPDOC ---
Text Note Date of Service The patient was seen on 06/29/19. NOTE Subjective: Patient complains of the left lower quadrant abdominal pain, 3 out of 10, nausea. Objective:ITAL SIGNS: Please see below. GENERAL APPEARANCE: Well-nourished, well-developed, not in apparent distress HEENT: Normocephalic, atraumatic. Mucous members moist and pink CARDIOVASCULAR: Regular rate and rhythm. No murmurs, rubs or gallops. Radial pulses are intact. There is no lower extremity edema LUNGS: Diminished lung sounds ABDOMEN: Abdomen is soft and nontender. MUSCULOSKELETAL: Range of motion is intact in all 4 extremities NEUROLOGICAL: Cranial nerves II-12 are grossly intact. 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 Day Gonzalez and Dr. Coats, knee and ankle osteoarthritis, who presents to the emergency room with a 2-wee history of back pain, left lower quadrant abdominal pain, nausea, vomiting, and today difficulty urinating and fever of 102 at home. Patient was found to have leukocytosis of 11.2 with increased sedimentation rate of 90. CT scan and MRI showed multiple left renal cysts, including large parapelvic renal cysts that have been present since at least imaging done with chest CT scan in 2017. There are changes of perinephric inflammation present. There is not a solid renal mass present. There is not a definite abscess present. Urology team recommended Ct or ultrasound guided aspiration, biopsy and possible drain placement by interventional radiology on Sunday. Sepsis unknown etiology for now, there is possibility of perinephric inflammation secondary to infectious process. There is also concern for malignancy Patient febrile with significantly increased ESR, mild leukocytosis, acute kidney injury Antibiotics started empirically IV fluid Left renal cystic mass CT scan and MRI showed multiple left renal cysts, including large parapelvic renal cysts that have been present since at least imaging done with chest CT scan in 2017. There are changes of perinephric inflammation present. There is not a solid renal mass present. There is not a definite abscess present. Urology team recommended Ct or ultrasound guided aspiration, biopsy and possible drain placement by interventional radiology on Sunday. Urologist Dr. Da Silva follows him Acute renal failure. 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 Outpatient followup. VS,Fishbone, I+O VS, Fishbone, I+O Laboratory Tests 06/28/19 18:16 06/29/19 06:02 Vital Signs Date Time Temp Pulse Resp B/P (MAP) Pulse Ox O2 Delivery O2 Flow Rate FiO2 06/29/19 08:41 16 06/29/19 06:00 98.3 71 119/74 (89) 97 Room Air I&O- Last 24 Hours up to 6 AM 06/29/19 05:59 Intake Total 1050 ml Output Total 669 ml Balance 381 ml HUNG GUERIN DO Jun 29, 2019 15:34
[2019-06-29] MEDS: NS 1,000 ML IV SCH (16:10)
[2019-06-29] MEDS: TAMSULOSIN 0.4 MG CAP PO SCH (20:59)
[2019-06-29 22:00] VITALS: BP 130/79
[2019-06-30] MEDS: NS 1,000 ML IV SCH ×2 (02:51→14:11)
[2019-06-30 06:00] VITALS: BP 118/77
[2019-06-30 06:07] LABS: HEMATOCRIT 30.7 % (42.0-52.0); HEMOGLOBIN 10.6 g/dl (13.5-17.5); MEAN CORPUSCULAR HEMOGLOBIN 30.8 pg (27.0-33.0); MEAN CORPUSCULAR HGB CONC 34.5 g/dl (32.0-36.5); MEAN CORPUSCULAR VOLUME 89.2 fl (80.0-96.0); PLATELET COUNT, AUTOMATED 328 10^3/uL (150-450); RED BLOOD COUNT 3.44 10^6/uL (4.30-6.10); WHITE BLOOD COUNT 11.1 10^3/uL (4.0-10.0)
[2019-06-30 06:33] LABS: CALCIUM LEVEL 8.5 MG/DL (8.8-10.2); CREATININE FOR GFR 1.48 MG/DL (0.70-1.30); GLOMERULAR FILTRATION RATE 51.6 (>49); POTASSIUM SERUM 4.2 MEQ/L (3.5-5.1)
--- NOTE | 2019-06-30 07:40 | IPNPDOC ---
Subjective Review oF Systems Chief Complaint left sided abdominal pain, cystic left renal mass with left retroperitoneal inflammation Events since Last Encounter The patient is still requiring morphine for relief of pain. He has had some nausea but no vomiting. His pain is in the anterior left lower abdomen, not in the back Tmax last 24 hours was 100.9 I discussed the results of MRI and CT imaging with the patient and his . Recommend image guided aspiration, biopsy and possible drain placement by interventional radiology. Labs this am: WBC is 11,100. Hgb/Hct is 10.6/30.7 , creatinine is 1.48, BUN is 16 Objective Physical Examination General Exam: Alert, Cooperative, No Acute Distress ABDOMEN EXAM: Soft; No: Tenderness, Mass Vital Signs/I&O Vital Signs Date Time Temp Pulse Resp B/P (MAP) Pulse Ox O2 Delivery O2 Flow Rate FiO2 06/30/19 06:00 97.1 75 16 118/77 (91) 96 Room Air I&O- Last 24 Hours up to 6 AM 06/30/19 06:00 Intake Total 2890 ml Output Total 3505 ml Balance -615 ml Laboratory Data Labs 24H Laboratory Tests 2 06/29/19 15:29: Methicillin-Resist S.aureus DNA PCR NOT DETECTED 06/29/19 15:36: Lactic Acid Level 1.2 06/30/19 05:54: Nucleated Red Blood Cells % (auto) 0.0, Anion Gap 4L, Glomerular Filtration Rate 51.6, Calcium Level 8.5L CBC/BMP Laboratory Tests 06/30/19 05:54 Microbiology Microbiology 06/28/19 Blood Culture - Preliminary, Resulted No growth after 24 hours . All specim... 06/28/19 Blood Culture - Preliminary, Resulted No growth after 24 hours . All specim... Assessment/Plan Date Seen The patient was seen on 06/30/19. Patient Summary 1. Retroperitoneal inflammatory process associated with multiple left renal cysts versus cystic neoplasm 2. Lower urinary tract symptoms, started on tamsulosin, will remove us catheter Plan/VTE VTE Prophylaxis Ordered?: Yes Plan/Urinary Catheter Urinary Catheter: D/C Us Plan image guided aspiration, biopsy and possible drain placement left retroperitoneal inflammatory process associated with multiple left renal cysts by interventional radiology BINA JONES MD Jun 30, 2019 07:40
[2019-06-30] MEDS: VANCOMYCIN HCL 1,000 MG, VIAL MATE ADAPTER 1 EACH in D5W 250 ML IV SCH ×2 (08:49→21:11)
[2019-06-30] MEDS: MULTIVITAMINS/MINERALS THERAP 1 TAB PO SCH (08:50)
[2019-06-30] MEDS: ACETAMINOPHEN TAB 650MG DOSE (2X325MG) PO PRN ×3 (08:50→23:05)
--- NOTE | 2019-06-30 10:09 | PHACANCOPD ---
PHARMACY VANCOMYCIN DOSING Pt Demographics Demographics Patient Age:59 , Weight:82.100 , Gender: male Adjusted Body Weight Date: 06/29/19, Adjusted Body Weight: [80.3] Kg Events Past 24 Hours Events Past 24 Hours: YES: Fever, Elevation in WBC; NO: Dialysis, Diuretic Therapy, Change in CrCl, Pending Diagnostics, Pending Procedures, Other Vancomycin Vancomycin indication: RENAL ABCESS Vancomycin Target Ranges: 10-20 mcg/ml Vancomycin Load Y/N: No Load Dose Date Time Vancomycin Load Dose: Date: Time: Vancomycin Dose Date: 06/29/19. Current Vancomycin Dose: [1GM Q12H] Intermittent Dosing?: No Labs Labs Vital Signs Label Value Date Time Patient Temperature 97.1 degrees F 06/30/19 0600 Temperature Source Temporal 06/30/19 0600 Patient Temperature 99.9 degrees F 06/29/19 2200 Temperature Source Temporal 06/29/19 2200 Patient Temperature 100.9 degrees F 06/29/19 1400 Temperature Source Temporal 06/29/19 1400 Patient Temperature 98.3 degrees F 06/29/19 0600 Temperature Source Temporal 06/29/19 0600 Patient Temperature 99.3 degrees F 06/29/19 0200 Temperature Source Oral 06/29/19 0200 Item Value Date Time White Blood Count 11.1 10^3/uL H 06/30/19 0554 White Blood Count 10.7 10^3/uL H 06/29/19 0602 White Blood Count 11.6 10^3/uL H 06/28/19 1816 Erythrocyte Sedimentation Rate 96 mm/hr H 06/28/19 1816 Creatinine 1.48 MG/DL H 06/30/19 0554 Creatinine 1.34 MG/DL H 06/29/19 0602 Creatinine 1.60 MG/DL H 06/28/19 1816 Glomerular Filtration Rate 51.6 06/30/19 0554 Glomerular Filtration Rate 57.9 06/29/19 0602 Glomerular Filtration Rate 47.2 L 06/28/19 1816 Vancomycin Level Trough 11.2 UG/ML 06/30/19 0825 Methicillin-Resist S.aureus DNA PCR NOT DETECTED 06/29/19 1529 Micro Microbiology 06/28/19 Blood Culture - Preliminary, Resulted No growth after 24 hours . All specim... 06/28/19 Blood Culture - Preliminary, Resulted No growth after 24 hours . All specim... Creatinine Clearance Date:06/29/19. Creatinine Clearance: [55.8].CALCULATED Assessment and Plan Maintaining Current Dose?: Yes Reason for dose change: No Dose Change Pharmacist Note Pharmacist Note 06/30/19: Trough drawn today at 0825 before dose at 0900 resulted at 11.2mcg/ml. Our goal trough is 10-20mcg/ml. At this time we will continue the current dose of Vanco 1G IV Q12H@0900. The patient will possibly undergo drain placement/biopsy in IR today. The patient's WBC are not improved and the patient continues to spike fevers. We will continue to monitor and adjust dose as needed. Date: 06/29/19. Pharmacist note:59 YOM HT:72",WT:84.3KG,scr:1.6,crcl:55.8 CALCULATED,ALLERGY:PENICILLIN:Admisson d/t renal abcess.TX w/ceftriaxone 2 gm q24h and Pharmacy dosed Vancomycin(trough goal 10-20).Vancomycin 1 gm administered [id number],then will begil 1 gram iv [id number] regimen @0900 this morning(6 hrs after first dose) trough is scheduled for 06/30@0800(prior to the 4th dose) [facility] Jun 30, 2019 10:09
[2019-06-30] MEDS ORDERED: GLYCERIN ADULT SUPP PR PRN (11:00)
[2019-06-30] MEDS ORDERED: LIDOCAINE 1% MDV 20ML VIAL As Ordered ONE (12:46)
[2019-06-30 14:00] VITALS: BP 147/75
--- NOTE | 2019-06-30 15:11 | IPNPDOC ---
Subjective Date Seen The patient was seen on 06/30/19. Subjective Chief Complaint/HPI Mr. Adam is a 59 year old male who was admitted to the hospital due to fever, LLQ abdominal pain and severe back pain. His imaging has revealed multiple renal cysts, without evidence of mass or abscess. He is scheduled to have aspiration of the cyst(s), biopsy and possible drain placement later today. Pt was seen sitting up in bed with family present. He reported he continues to suffer from back pain, worse at night which prevents him from getting any sleep at night. He has had his Young catheter removed and tolerated that well. per nursing: Pt reported constipation even with Dulcolax use. He is requesting a laxative to help him void. Objective Physical Examination General Exam: Positive: Alert, No Acute Distress Eye Exam: Positive: Conjunctiva & lids normal; Negative: Sclera icteric ENT Exam: Positive: Atraumatic (s/p revision of the L mandible 2/2 Stage IV SCC) Neck Exam: Positive: Supple; Negative: thyromegaly Chest Exam: Positive: Clear to auscultation, Normal air movement Heart Exam: Positive: Rate Normal, Regular Rhythm, Normal S1, Normal S2; Negative: Murmurs, Rubs Telemetry: Positive: No significant arrhythmia Abdomen Exam: Positive: Normal bowel sounds, Soft; Negative: Tenderness Extremity Exam: Negative: Clubbing, Cyanosis, Edema Skin Exam: Positive: Nl turgor and temperature Neuro Exam: Positive: Normal Speech Psych Exam: Positive: Mood NL, Oriented x 3 Assessment /Plan Assessment "59-year-old male with a 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 Day Gonzalez and Dr. Coats, knee and ankle osteoarthritis, who presents to the emergency room with a 2-week history of back pain, left lower quadrant abdominal pain, nausea, vomiting, and today difficulty urinating and fever of 102 at home. Patient was found to have leukocytosis of 11.2 with increased sedimentation rate of 90. MRI showed Large multilobulated left renal cystic mass with extensive regional inflammation extending throughout the retroperitoneal space. There is enhancement along the [place] of the cyst, with no single dominant masslike focus of enhancement. Differential considerations include superinfected cystic neoplasm, infection with renal/perirenal abscess extending into the retroperitoneal space, or inflammation associated with sterile cyst rupture. CT abdomen: multiple left renal cysts, including large parapelvic renal cysts that have been present since at least imaging done with chest CT scan in 2017. There are changes of perinephric inflammation present. There is not a solid renal mass present. There is not a definite abscess present. Urology team recommended Ct or ultrasound guided aspiration, biopsy and possible drain placement by interventional radiology on Sunday." Sepsis - now resolved - pt received Vanc and Rocephin in the ED; continued inpatient - lactic acid normal; Procalcitonin normal; mild leukocytosis persists, possibly inflammatory vs infectious cause - continue abx for now as possible abscess noted several times on imaging; however, reassess the need for continued antibiotic therapy if no noted abscess per IR Large multilobulated Left Renal Cystic Mass extending into retroperitoneal space with extensive regional inflammation - Dr. Da Silva is on consult - recommends US guided aspiration, biopsy and possible drain placement by IR today on the left - continued management based on procedure findings and per urology -There is also a large simple renal cyst LORRIE - Baseline cr is 0.8 - some improvement with IV fluids and abx - no changes to current plan, awaiting renal Bx results BPH - Young catheter d/c today - Tamsulosin started per urology - I advised pt to strictly monitor his output and advise if he has problems urinating - I talked to him about the side effects of Flomax including a.m. 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 - no acute intervention Plan/VTE VTE Prophylaxis Ordered?: Yes Plan/Urinary Catheter Urinary Catheter: D/C Young VS, I&O, 24H, Fishbone Vital Signs/I&O Vital Signs Date Time Temp Pulse Resp B/P (MAP) Pulse Ox O2 Delivery O2 Flow Rate FiO2 06/30/19 13:59 99.0 06/30/19 13:38 82 18 97 Room Air 06/30/19 06:00 118/77 (91) I&O- Last 24 Hours up to 6 AM 06/30/19 06:00 Intake Total 3490 ml Output Total 3505 ml Balance -15 ml Laboratory Data 24H LABS Laboratory Tests 2 06/29/19 15:29: Methicillin-Resist S.aureus DNA PCR NOT DETECTED 2/23/20 15:36: Lactic Acid Level 1.2 06/30/19 05:54: Nucleated Red Blood Cells % (auto) 0.0, Anion Gap 4L, Glomerular Filtration Rate 51.6, Calcium Level 8.5L 06/30/19 08:25: Vancomycin Level Trough 11.2 CBC/BMP Laboratory Tests 06/30/19 05:54 Microbiology Microbiology 06/28/19 Blood Culture - Preliminary, Resulted No growth after 24 hours . All specim... 06/28/19 Blood Culture - Preliminary, Resulted No growth after 24 hours . All specim... ELFEGO KNAPP PA-C Jun 30, 2019 15:11 CHRISTOPHER GOMEZ MD Jul 02, 2019 04:47
--- NOTE | 2019-06-30 16:26 | IPNPDOC ---
Subjective Review oF Systems Chief Complaint The patient is a 59-year-old male admitted with a reason for visit of Renal Mass, Left. Events since Last Encounter The patient reports that he experienced immediate improvement in his pain after placement of percutaneous drain into left perirenal cystic mass. It has drained a large amount of clear fluid since this was placed. I suspect that the drain has been placed into a very dilated left renal collecting system that is very unusual in its configuration. The etiology of the dilation of the collecting system is likely from obstructing but neither CT nor MRI have demonstrated an obstructing process other than renal cysts. There is no evidence of a ureteral calculus nor mass extrinsically compressing the ureter. I discussed the findings with the patient, his and his daughter. I recommend that he undergo cystoscopy and retrograde pyelography to define the anatomy of the collecting system of the left kidney. I explained the technique of the procedure as well as the possibility of placing an internal ureteral catheter at that time. The patient voiced that he agrees with this plan. Objective Physical Examination General Exam: Alert, Cooperative, No Acute Distress Heart Exam: Positive: Rate Normal, Regular Rhythm, Normal S1, Normal S2; Negative: Murmurs, Rubs ABDOMEN EXAM: Soft, Other (drain left flank with clear fluid in drainage bag); No: Tenderness, Mass Vital Signs/I&O Vital Signs Date Time Temp Pulse Resp B/P (MAP) Pulse Ox O2 Delivery O2 Flow Rate FiO2 06/30/19 13:59 99.0 06/30/19 13:38 82 18 97 Room Air 06/30/19 06:00 118/77 (91) I&O- Last 24 Hours up to 6 AM 06/30/19 06:00 Intake Total 3490 ml Output Total 3505 ml Balance -15 ml Laboratory Data Labs 24H Laboratory Tests 2 06/30/19 05:54: Nucleated Red Blood Cells % (auto) 0.0, Anion Gap 4L, Glomerular Filtration Rate 51.6, Calcium Level 8.5L 06/30/19 08:25: Vancomycin Level Trough 11.2 CBC/BMP Laboratory Tests 06/30/19 05:54 Microbiology Microbiology 06/28/19 Blood Culture - Preliminary, Resulted No growth after 24 hours . All specim... 06/28/19 Blood Culture - Preliminary, Resulted No growth after 24 hours . All specim... Assessment/Plan Date Seen The patient was seen on 06/30/19. Plan/VTE VTE Prophylaxis Ordered?: Yes Plan/Urinary Catheter Urinary Catheter: D/C BINA Schwab MD Jun 30, 2019 16:26
--- NOTE | 2019-06-30 16:40 | REP ---
CT-GUIDED LEFT RETROPERITONEAL ABSCESS DRAIN The procedure was performed under the direct supervision of Dr. Hylton. The patient has a history of a large multilobulated left renal cystic mass seen on a previous MRI dated 06/29/2019. The risks and benefits of the procedure were explained to the patient and informed consent was obtained. The left retroperitoneal abscess was localized using CT guidance. The skin was prepped and draped in a sterile fashion. 1% lidocaine was used as a local anesthetic. Using CT guidance and trocar technique an 8-[place] Sk[place] APDL was inserted. 180 ml of clear yellow fluid was withdrawn and sent to lab for analysis. The catheter was affixed to the skin and a sterile dressing was applied. The catheter was connected to a gravity drainage bag. The patient tolerated the procedure well and there were no immediate complications. Electronically Signed by SIS Crabtree 06/30/2019 03:10 P Electronically Signed by Jaylan Hylton MD 06/30/2019 04:31 P
[2019-06-30] MEDS: TAMSULOSIN 0.4 MG CAP PO SCH (21:10)
[2019-06-30 22:00] VITALS: BP 118/75
[2019-06-30] MEDS: cefTRIAXone SOD 2 GM in D5W MINI-BAG PLUS 50 ML IV SCH (23:03)
[2019-07-01] MEDS: NS 1,000 ML IV SCH ×2 (02:05→11:24)
[2019-07-01 06:00] VITALS: BP 108/67
[2019-07-01 06:30] LABS: HEMATOCRIT 32.3 % (42.0-52.0); HEMOGLOBIN 10.9 g/dl (13.5-17.5); MEAN CORPUSCULAR HEMOGLOBIN 30.6 pg (27.0-33.0); MEAN CORPUSCULAR HGB CONC 33.7 g/dl (32.0-36.5); MEAN CORPUSCULAR VOLUME 90.7 fl (80.0-96.0); PLATELET COUNT, AUTOMATED 351 10^3/uL (150-450); RED BLOOD COUNT 3.56 10^6/uL (4.30-6.10); WHITE BLOOD COUNT 6.1 10^3/uL (4.0-10.0)
[2019-07-01 06:52] LABS: BLOOD UREA NITROGEN 17 MG/DL (7-18); CALCIUM LEVEL 8.5 MG/DL (8.8-10.2); CARBON DIOXIDE LEVEL 26 MEQ/L (21-32); CHLORIDE LEVEL 108 MEQ/L (98-107); CREATININE FOR GFR 0.94 MG/DL (0.70-1.30); GLOMERULAR FILTRATION RATE > 60.0 (>49); GLUCOSE, FASTING 102 MG/DL (70-100); SODIUM LEVEL 139 MEQ/L (136-145)
[2019-07-01] MEDS: MULTIVITAMINS/MINERALS THERAP 1 TAB PO SCH (07:47)
--- NOTE | 2019-07-01 07:48 | IPNPDOC ---
Subjective Review oF Systems Chief Complaint The patient is a 59-year-old male admitted with a reason for visit of Renal Mass, Left. Events since Last Encounter The patient is scheduled to undergo cystoscopy, left retrograde pyelography and possible placement of left internal ureteral catheter to evaluate the cause of apparent obstruction of left renal collecting system post placement of left percutaneous drain into the left renal collecting system yesterday. I explained the procedure again this morning to the patient along with the risks, benefits, alternatives. All questions answered. He voiced that he understood and agrees with proceeding. Informed consent obtained. Objective Physical Examination General Exam: Alert, Cooperative, No Acute Distress Heart Exam: Positive: Rate Normal, Regular Rhythm, Normal S1, Normal S2; Negative: Murmurs, Rubs ABDOMEN EXAM: Soft, Other (drain left flank with clear fluid in drainage bag); No: Tenderness, Mass Vital Signs/I&O Vital Signs Date Time Temp Pulse Resp B/P (MAP) Pulse Ox O2 Delivery O2 Flow Rate FiO2 06/30/19 22:00 98.6 68 18 118/75 (89) 98 Room Air I&O- Last 24 Hours up to 6 AM 07/01/19 05:59 Intake Total 2418 ml Output Total 3690 ml Balance -1272 ml Laboratory Data Labs 24H Laboratory Tests 2 06/30/19 08:25: Vancomycin Level Trough 11.2 07/01/19 06:16: Nucleated Red Blood Cells % (auto) 0.0, Anion Gap 5L, Glomerular Filtration Rate > 60.0, Calcium Level 8.5L CBC/BMP Laboratory Tests 07/01/19 06:16 Microbiology Microbiology 07/01/19 Gram Stain, Received Pending 07/01/19 Abscess Culture, Received Pending 07/01/19 Fungal Smear, Received Pending 07/01/19 Fungal Culture, Received Pending 06/28/19 Blood Culture - Preliminary, Resulted No Growth after 48 hours. All Specime... 06/28/19 Blood Culture - Preliminary, Resulted No Growth after 48 hours. All Specime... Assessment/Plan Date Seen The patient was seen on 07/01/19. Patient Summary left hydronephrosis, etiology not clear, for further evaluation today Plan/VTE VTE Prophylaxis Ordered?: Yes Plan/Urinary Catheter Urinary Catheter: D/C Young Plan NPO for OR later today BINA JONES MD Jul 01, 2019 07:48
--- NOTE | 2019-07-01 08:50 | PHACANCOPD ---
PHARMACY VANCOMYCIN DOSING Pt Demographics Demographics Patient Age:59 , Weight:82.100 , Gender: male Adjusted Body Weight Date: 06/29/19, Adjusted Body Weight: [80.3] Kg Vancomycin Vancomycin indication: RENAL ABCESS Vancomycin Target Ranges: 10-20 mcg/ml Vancomycin Load Y/N: No Load Dose Date Time Vancomycin Load Dose: Date: Time: Vancomycin Dose Date: 06/29/19. Current Vancomycin Dose: [1GM Q12H] Intermittent Dosing?: No Labs Micro Microbiology 07/01/19 Gram Stain, Received Pending 07/01/19 Abscess Culture, Received Pending 07/01/19 Fungal Smear, Received Pending 07/01/19 Fungal Culture, Received Pending 06/28/19 Blood Culture - Preliminary, Resulted No Growth after 48 hours. All Specime... 06/28/19 Blood Culture - Preliminary, Resulted No Growth after 48 hours. All Specime... Creatinine Clearance Date:06/29/19. Creatinine Clearance: [55.8].CALCULATED Assessment and Plan Maintaining Current Dose?: No Reason for dose change: Trough too low Pharmacist Note Pharmacist Note 07/01/19: Trough drawn today @ 0750 before 0900 dose resulted at 10.6 mcg/ml. We'll increase dose to 1500 mg IV q12h. Pharmacy will continue to monitor and make adjustments as needed. Will also keep an eye out for cytology of renal mass biopsy. 06/30/19: Trough drawn today at 0825 before dose at 0900 resulted at 11.2mcg/ml. Our goal trough is 10-20mcg/ml. At this time we will continue the current dose of Vanco 1G IV Q12H@0900. The patient will possibly undergo drain placement/b iopsy in IR today. The patient's WBC are not improved and the patient continues to spike fevers. We will continue to monitor and adjust dose as needed. Date: 06/29/19. Pharmacist note:59 YOM HT:72",WT:84.3KG,scr:1.6,crcl:55.8 CALCULATED,ALLERGY:PENICILLIN:Admisson d/t renal abcess.TX w/ceftriaxone 2 gm q24h and Pharmacy dosed Vancomycin(trough goal 10-20).Vancomycin 1 gm administer ed [id number],then will begil 1 gram iv q94ycbs regimen @0900 this morning(6 hrs after first dose) trough is scheduled for 06/30@0800(prior to the 4th dose) [facility] Jul 01, 2019 08:50
[2019-07-01] MEDS: VANCOMYCIN HCL 1,000 MG, VIAL MATE ADAPTER 1 EACH in D5W 250 ML IV SCH (09:32)
[2019-07-01] MEDS ORDERED: VANCOMYCIN HCL 500 MG in D5W MINI-BAG PLUS 100 ML IV SCH (10:00)
--- NOTE | 2019-07-01 11:10 | IPNPDOC ---
Text Note Date of Service The patient was seen on 07/01/19. NOTE Chief Complaint/HPI Mr. Adam is a 59 year old male who was admitted to the hospital due to fever, LLQ abdominal pain and severe back pain. His imaging has revealed multiple renal cysts, without evidence of mass or abscess. Pt reported relief from his back pain following drainage yesterday. He denied any new or worsening events overnight. He is scheduled for a cystoscopy later this afternoon per urology. Objective Physical Examination General Exam: Positive: Alert, No Acute Distress Eye Exam: Positive: Conjunctiva & lids normal; Negative: Sclera icteric ENT Exam: Positive: Atraumatic (s/p revision of the L mandible / Stage IV SCC) Neck Exam: Positive: Supple; Negative: thyromegaly Chest Exam: Positive: Clear to auscultation, Normal air movement Heart Exam: Positive: Rate Normal, Regular Rhythm, Normal S1, Normal S2; Negative: Murmurs, Rubs Telemetry: Positive: No significant arrhythmia Abdomen Exam: Positive: Normal bowel sounds, Soft; Other: drain in place with clear fluid Negative: Tenderness Extremity Exam: Negative: Clubbing, Cyanosis, Edema Skin Exam: Positive: Nl turgor and temperature Neuro Exam: Positive: Normal Speech Psych Exam: Positive: Mood NL, Oriented x 3 Assessment /Plan Assessment "59-year-old male with a 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 Day Gonzalez and Dr. Coats, knee and ankle osteoarthritis, who presents to the emergency room with a 2-week history of back pain, left lower quadrant abdominal pain, nausea, vomiting, and today difficulty urinating and fever of 102 at home. Patient was found to have leukocytosis of 11.2 with increased sedimentation rate of 90. CT scan and MRI showed multiple left renal cysts, including large parapelvic renal cysts that have been present since at least imaging done with chest CT scan in 2017. There are changes of perinephric inflammation present. There is not a solid renal mass present. There is not a definite abscess present. Urology team recommended Ct or ultrasound guided aspiration, biopsy and possible drain placement by interventional radiology on Sunday." Sepsis - now resolved - pt received Vanc and Rocephin in the ED; continued inpatient - lactic acid normal; Procalcitonin normal; mild leukocytosis persists, possibly inflammatory vs infectious cause - d/c vanc today (completed 3d) continue Rocephin IV x 5 d. Large multilobulated Left Renal Cystic Mass extending into retroperitoneal space with extensive regional inflammation - Dr. Da Silva is on consult - recommended US guided aspiration, biopsy and possible drain placement by IR - done 06/30/19 - L sided hydronephrosis, immediate relief of pain symptoms and improvement of Cr suggest obstructive pathology not previously observed on CT/MRI; Cystoscopy with possible placement of left internal catheter today per Dr. Da Silva. - continued management per urology -There is also a large simple renal cyst - The Left drainage catheter put out several liters of fluid which is urine so its thought that there is a connection between the cystic mass and the renal collecting system. LORRIE - now resolved s/p cyst aspiration and drain on 06/30/19 as noted above - seems to be due to obstructive uropathy BPH - Young catheter d/c 06/30/19 - Tamsulosin started per urology - I advised pt to strictly monitor his output and advise if he has problems urinating - I talked to him about the side effects of Flomax including a.m. 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 - no acute intervention Plan/VTE VTE Prophylaxis Ordered?: Yes VS,Fishbone, I+O VS, Fishbone, I+O Laboratory Tests 07/01/19 06:16 Vital Signs Date Time Temp Pulse Resp B/P (MAP) Pulse Ox O2 Delivery O2 Flow Rate FiO2 07/01/19 06:00 97.7 71 18 108/67 (81) 96 Room Air I&O- Last 24 Hours up to 6 AM 07/01/19 05:59 Intake Total 2418 ml Output Total 3690 ml Balance -1272 ml ELFEGO KNAPP PA-C Jul 01, 2019 11:10 CHRISTOPHER GOMEZ MD Jul 02, 2019 04:52
[2019-07-01 14:00] VITALS: BP 116/74
[2019-07-01] MEDS ORDERED: LIDOCAINE 2% INJ 100 MG/5 ML SDV (FOR ANES.) As Ordered ONE (15:53)
[2019-07-01] MEDS ORDERED: propofoL 200 MG/20 ML VIAL As Ordered ONE ×2 (15:53→16:57)
[2019-07-01] MEDS ORDERED: dexameTHASONE 4 MG/ML 1ML VIAL (J1100) As Ordered ONE (15:53)
[2019-07-01] MEDS ORDERED: ONDANSETRON 4MG/2ML VIAL (J2405) As Ordered ONE (15:53)
[2019-07-01] MEDS ORDERED: MIDAZOLAM INJ 2 MG/2 ML VIAL (J2250) As Ordered ONE (15:54)
[2019-07-01] MEDS ORDERED: fentaNYL 100 MCG/2 ML INJECTION (J3010) As Ordered ONE (15:55)
[2019-07-01] MEDS ORDERED: ACETAMINOPHEN 1000MG 100ML IV BTL (OFIRMEV) (J0131 PER 10MG) As Ordered ONE (15:58)
[2019-07-01] MEDS ORDERED: CONRAY-60 60% 50ML VIAL (Q9961) As Ordered ONE (16:09)
[2019-07-01] MEDS ORDERED: KETAMINE HCL 200 MG/20 ML VIAL As Ordered ONE (16:23)
[2019-07-01] MEDS ORDERED: GLYCOPYRROLATE INJ 0.2 MG/ML 2 ML VIAL As Ordered ONE (16:24)
[2019-07-01] MEDS ORDERED: LIDOCAINE 2% 5ML JELLY UROJET As Ordered ONE (16:37)
--- NOTE | 2019-07-01 17:40 | REP ---
Retrograde pyelogram: Nine views. History: Stent placement. 47 seconds of fluoroscopy time is reported. Findings: A sequence of nine last image hold fluoroscopically obtained spot radiographs of the left abdomen document left ureteral cannulation, contrast injection, and double pigtail stent placement. Right ureteral contrast injection was also performed. Contrast is injected during the study through the drainage catheter placed the previous day in the left retroperitoneum. The pyelogram shows that the drainage catheter is placed in a perirenal space urinoma which appears to communicate with the lower pole marilou of the hydronephrotic left kidney. There is evidence of a stricture of a proximal ureter below the renal pelvis. Electronically Signed by Jaylan Hylton MD 07/01/2019 05:50 P
[2019-07-01] MEDS ORDERED: ONDANSETRON 4MG/2ML VIAL (J2405) IV PRN (17:45)
[2019-07-01] MEDS ORDERED: LR 1,000 ML IV SCH (17:45)
[2019-07-01] MEDS ORDERED: PERCOCET 5MG/325MG TAB PO PRN (17:45)
[2019-07-01] MEDS ORDERED: fentaNYL 100 MCG/2 ML INJECTION (J3010) IV PRN (17:45)
[2019-07-01 18:00] VITALS: BP 133/74
[2019-07-01] MEDS: TAMSULOSIN 0.4 MG CAP PO SCH (21:42)
[2019-07-01 22:00] VITALS: BP 102/50
[2019-07-01] MEDS: cefTRIAXone SOD 2 GM in D5W MINI-BAG PLUS 50 ML IV SCH (22:23)
[2019-07-02 02:00] VITALS: BP 123/63
[2019-07-02] MEDS: ACETAMINOPHEN TAB 650MG DOSE (2X325MG) PO PRN (04:59)
[2019-07-02 06:00] VITALS: BP 119/63
[2019-07-02 06:26] LABS: HEMATOCRIT 31.7 % (42.0-52.0); HEMOGLOBIN 10.7 g/dl (13.5-17.5); MEAN CORPUSCULAR HEMOGLOBIN 30.6 pg (27.0-33.0); MEAN CORPUSCULAR HGB CONC 33.8 g/dl (32.0-36.5); MEAN CORPUSCULAR VOLUME 90.6 fl (80.0-96.0); PLATELET COUNT, AUTOMATED 381 10^3/uL (150-450); WHITE BLOOD COUNT 7.6 10^3/uL (4.0-10.0)
[2019-07-02 06:42] LABS: BLOOD UREA NITROGEN 18 MG/DL (7-18); CALCIUM LEVEL 8.5 MG/DL (8.8-10.2); CARBON DIOXIDE LEVEL 27 MEQ/L (21-32); CHLORIDE LEVEL 106 MEQ/L (98-107); CREATININE FOR GFR 0.89 MG/DL (0.70-1.30); GLOMERULAR FILTRATION RATE > 60.0 (>49); GLUCOSE, FASTING 120 MG/DL (70-100); SODIUM LEVEL 139 MEQ/L (136-145)
--- NOTE | 2019-07-02 07:59 | RO ---
DATE OF PROCEDURE: 07/01/2019 PREPROCEDURE DIAGNOSIS: Left hydronephrosis. POSTPROCEDURE DIAGNOSIS: Left hydronephrosis with apparent extrinsic compression of left renal collecting system by cystic mass adjacent to the lower pole of the left kidney. PROCEDURE: Cystourethroscopy, bilateral retrograde pyelography, placement of left internal ureteral catheter, contrast injection into left retroperitoneal drain. SURGEON: Dr. David Da Silva. HUMANITIES PROFESSOR: ANESTHESIA: Monitored anesthesia care (MAC). COMPLICATIONS: None. DRAINS: Variable length by #6-Luxembourger double pigtail left internal ureteral catheter. SPECIMEN: None. HISTORY: The patient is a 59-year-old male who presents with abdominal pain and was found to have a complex cystic mass involving the left kidney with left hydronephrosis. Percutaneous drain was placed in the cystic mass and the patient's symptoms immediately improved. Because of the uncertain anatomy defined on the CT imaging, the MRI imaging and also the antegrade placement of drain into the mass, the patient was brought to the operating room for cystoscopy and retrograde pyelography to define the anatomy of the left renal collecting system better. The procedure was carefully explained to the patient along with the benefits, risks, alternatives. Informed consent was obtained. DESCRIPTION OF PROCEDURE: After successful anesthetization with MAC by anesthesia, patient was placed in the dorsal lithotomy position on the operating table using Jay stirrups. The patient's genitalia were prepped and draped in a sterile manner using Betadine. 5 mL of 2% lidocaine jelly was injected into the urethra and allowed to take effect. The Olympus 22-Luxembourger cystoscope sheath with a 33 lens was easily inserted into the urethra and navigated into the bladder. The anterior urethra was normal. Prostatic urethra was short minimally obstructing. The left ureteral orifice was identified and an 8-Luxembourger cone-tip catheter was used to inject contrast media to perform a left retrograde pyelogram. The left renal collecting system was quite delicate. It was nondilated and was noted to have no evidence of a duplication anomaly on filling of the upper pole, mid pole and lower pole calices through the injection contrast. There was no evidence of an accessory ureteral orifice on the left side. The ureteral orifice on the right side was also single. A right retrograde pyelogram demonstrates single ureter on the right side was filling the collecting system. The etiology of the cystic mass in the lower pole of the left kidney was initially though to possibly be related to a duplication anomaly of the collecting system but in view of the filling of the entire caliceal system of the left kidney, this is unlikely. A 5-Luxembourger open-end ureteral catheter was introduced to advance a guidewire into the left renal collecting system. Over this, a variable length by 6-Luxembourger double pigtail internal ureteral catheter was placed with the proximal end coiled in the upper pole of the collecting system of the kidney and the lower portion coiled in the bladder. The bladder was then evacuated and the cystoscope was withdrawn. The left percutaneous drain was then injected with contrast media which demonstrated a cavity that did not appear to be communicate with the collecting system. This was returned to dependent drainage. The patient was awakened and transported to the recovery room in satisfactory condition having tolerated this procedure well.
--- NOTE | 2019-07-02 08:24 | IPNPDOC ---
Subjective Review oF Systems Chief Complaint The patient is a 59-year-old male who is undergoing evaluation of a left perinephric fluid collection which appears to be urinary extravasation Events since Last Encounter The patient states he rested well overnight. He has no flank discomfort. The amount of drainage through his left flank retroperitoneal drains diminished after cystoscopy and placement of left internal ureteral catheter. His renal function is improved after drain placement. His creatinine today is 0.89 was deemed is 18. White blood cell count of 7600. His maximum temperature overnight was 98.8. I reviewed his CT scan, MRI, percutaneous drain placement images, retrograde pyelography, and injection study into left flank drain. I feel the patient is had some obstructing process causing forniceal rupture of lower pole calyx with urinary extravasation forming a perinephric urinoma. There is no evidence of ureteral calculus. The collecting system the left kidney demonstrates no evidence of intrinsic obstruction. There may be extrinsic compression of the ureter present. His drainage output is diminished significantly since placement of left internal ureteral catheter which indicates that the forniceal rupture may spontaneously heal with adequate decompression of the collecting system the left kidney. I recommended patient be discharged home with the left flank drain in place. I instructed the patient and keeping a log of the output. I would expect this overtime to continue to diminish now that the complex cyst of the left kidney has been decompressed. Recommend follow-up in the office in 1 week. Patient agrees with this plan. Objective Physical Examination General Exam: Alert, Cooperative, No Acute Distress Heart Exam: Positive: Rate Normal, Regular Rhythm, Normal S1, Normal S2; Negative: Murmurs, Rubs ABDOMEN EXAM: Soft, Other (drain left flank with clear fluid in drainage bag); No: Tenderness, Mass Vital Signs/I&O Vital Signs Date Time Temp Pulse Resp B/P (MAP) Pulse Ox O2 Delivery O2 Flow Rate FiO2 07/02/19 06:00 98.0 65 18 119/63 (81) 96 Room Air I&O- Last 24 Hours up to 6 AM 07/02/19 05:59 Intake Total 2390 ml Output Total 2170 ml Balance 220 ml Laboratory Data Labs 24H Laboratory Tests 2 07/02/19 05:33: Nucleated Red Blood Cells % (auto) 0.0, Anion Gap 6L, Glomerular Filtration Rate > 60.0, Calcium Level 8.5L CBC/BMP Laboratory Tests 07/02/19 05:33 Microbiology Microbiology 07/01/19 Gram Stain - Final, Resulted 07/01/19 Abscess Culture, Resulted Pending 07/01/19 Fungal Smear, Received Pending 07/01/19 Fungal Culture, Received Pending 06/28/19 Blood Culture - Preliminary, Resulted No Growth after 72 hours. All specime... 06/28/19 Blood Culture - Preliminary, Resulted No Growth after 72 hours. All specime... Assessment/Plan Date Seen The patient was seen on 07/02/19. 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 Patient is stable for discharge from urologic standpoint 2. Patient instructed to keep a log of the output of his left flank drain 3. Follow-up appointment urology office 1 week BINA JONES MD Jul 02, 2019 08:24
[2019-07-02] MEDS: MULTIVITAMINS/MINERALS THERAP 1 TAB PO SCH ×2 (09:00→09:02)
[2019-07-02] MEDS ORDERED: FLOM0.4C39 PO (09:26)
--- NOTE | 2019-07-02 15:19 | DS.PDOC ---
Discharge Summary General Date of Admission Jun 28, 2019 at 21:18 Date of Discharge 07/02/2019 Discharge Summary PROCEDURES PERFORMED DURING STAY: Renal US guided aspiration, biopsy and left flank retroperitoneal drain placement by IR. Cystoscopy with left internal ureteral catheter placement. ADMITTING DIAGNOSES: 1. Left renal cystic mass 2. Acute renal failure 3. 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 Left renal cystic mass 2. LORRIE with obstructive uropathy 3. 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 Day Gonzalez and Dr. Coats, knee and ankle osteoarthritis, who was in his usual state of health until 2 weeks ago when he noticed back pain, which was described as sharp and severe without any radiation with left lower quadrant abdominal pain accompanied with nausea once with non bilious, non projectile vomiting, fever that started this morning of 102, difficulty walking due to severe pain in the back, and decreased urination and constipation. The patient also noted some night sweats for the past few days. He denies any bright red blood per rectum, melena, black tarry stools or gross hematuria. Denies any dysuria, urgency, frequency, difficulty starting her urine. The patient took some ibuprofen one to two throughout the day today, but he has chronic difficulty swallowing and presented to the emergency room for further evaluation. He otherwise denies any sick contacts, shortness of breath, chest pain, pressure, tightness, palpitations, lightheadedness. Denies any upper or lower extremity weakness. Unable to ambulate well due to severe pain when he moves. No prior history of this in the past. In the emergency room, he was found to have a temperature of 100.7, white count of 11.6. CT of the abdomen and pelvis showed a large cystic mass within the left renal sinus, obliterating the left renal pelvis and extending into the left pararenal space and left psoas muscle. Differential diagnosis includes cystic neoplasm with probable underlying infection versus left renal abscesses with extension into the psoas muscle. Urologist, Dr. Da Silva, had been contacted by emergency room physician and will see the patient in the morning. Per Dr. Dennis, emergency room physician, most likely due to malignancy. He did receive vancomycin and ceftriaxone in the emergency room for potential infection. Urinalysis was unremarkable with 1+ bacteria, otherwise 1 WBC, negative nitrite and leukocyte esterase. Influenza A and B are negative. Chest x-ray showed no acute abnormality. The hospitalist was called to admit for left renal mass, cystic neoplasm versus infection with extension into the psoas muscle." HOSPITAL COURSE: Pt was admitted as noted above and urology consulted. Pt started on Vancomycin and Rocephin, morphine for pain and IV fluid resuscitation . Young cathter removed and pt was started on Tamsulosin per urology. Vancomycin was d/c 06/29 following negative MRSA screen, no lactic acidosis and normal procalcitonin; pt was afebrile and no longer met sepsis protocol. Dr. Da Silva recommended left sided US guided aspiration, biopsy and possible drain placement by IR 07/02/19. Pt reportedly experienced immediate relief of his pain following the percutaneous drain placement in the L perirenal cystic mass. His renal functions abruptly improved, his pain resolved. Urology then performed cystoscopy and retrograde pyelography on 07/02/19 to investigate a possible obstructive process causing dilatation of the left renal collecting system. The amount of drainage from the left flank drains were reduced following the procedure and the placement of a left internal ureteral catheter. Pt completed 4 days of Rocephin. When seen this morning, he reported he is ready to recover at home. He feels confident he and his can continue any care needed at home and he will be trained by the nurses to manage and monitor his drains. He is to be d/c with the left flank drain in place and follow-up with urology in 1 week. DISCHARGE MEDICATIONS: Please see below. ALLERGIES: Please see below. PHYSICAL EXAMINATION ON DISCHARGE: VITAL SIGNS: Please see below. General Exam: Positive: Alert, No Acute Distress Eye Exam: Positive: Conjunctiva & lids normal; Negative: Sclera icteric ENT Exam: Positive: Atraumatic (s/p revision of the L mandible 2/2 Stage IV SCC) Neck Exam: Positive: Supple; Negative: thyromegaly Chest Exam: Positive: Clear to auscultation, Normal air movement Heart Exam: Positive: Rate Normal, Regular Rhythm, Normal S1, Normal S2; Negative: Murmurs, Rubs Telemetry: Positive: No significant arrhythmia Abdomen Exam: Positive: Normal bowel sounds, Soft; Other: drain in place with clear fluid Negative: Tenderness Extremity Exam: Negative: Clubbing, Cyanosis, Edema Skin Exam: Positive: Nl turgor and temperature Neuro Exam: Positive: Normal Speech Psych Exam: Positive: Mood NL, Oriented x 3 LABORATORY DATA: Please see below. IMAGING: CT ABD/PEL W/IV & ORAL CONTRAS IMPRESSION: New large cystic mass within the left renal sinus, obliterating the left renal pelvis and extending into the left perirenal space and left psoas muscle. Differential diagnosis includes cystic neoplasm (with possible underlying infection) versus left renal abscesses with extension into the psoas muscle. Chest, 2 view PA, Lat Impression: Negative PA and lateral chest. MRI ABD W/O FOL WITH IMPRESSION: Large multilobulated left renal cystic mass with extensive regional inflammation extending throughout the retroperitoneal space. There is enhancement along the [place] of the cyst, with no single dominant masslike focus of enhancement. Differential considerations include superinfected cystic neoplasm, infection with renal/perirenal abscess extending into the retroperitoneal space, or inflammation associated with sterile cyst rupture. Would consider aspiration/fluid sampling for further assessment. Mild hepatosplenomegaly. ACTIVITY: [As tolerated]. DIET: As tolerated DISCHARGE PLAN: Discharge home with left flank drain and monitoring output as directed by urology. Follow-up with Urology 1 week. DISPOSITION: 01 Home, Self-Care. DISCHARGE INSTRUCTIONS: 1. see above ITEMS TO FOLLOWUP ON ON OUTPATIENT: 1. see above DISCHARGE CONDITION: [Stable]. TIME SPENT ON DISCHARGE: 36 minutes Vital Signs/I&Os Vital Signs Date Time Temp Pulse Resp B/P (MAP) Pulse Ox O2 Delivery O2 Flow Rate FiO2 07/02/19 06:00 98.0 65 18 119/63 (81) 96 Room Air I&O- Last 24 Hours up to 6 AM 07/02/19 06:00 Intake Total 1690 ml Output Total 2170 ml Balance -480 ml Laboratory Data Labs 24H Laboratory Tests 2 07/02/19 05:33: Nucleated Red Blood Cells % (auto) 0.0, Anion Gap 6L, Glomerular Filtration Rate > 60.0, Calcium Level 8.5L CBC/BMP Laboratory Tests 07/02/19 05:33 Microbiology Microbiology 07/01/19 Gram Stain - Final, Resulted 07/01/19 Abscess Culture, Resulted Pending 07/01/19 Fungal Smear, Received Pending 07/01/19 Fungal Culture, Received Pending 06/28/19 Blood Culture - Preliminary, Resulted No Growth after 72 hours. All specime... 06/28/19 Blood Culture - Preliminary, Resulted No Growth after 72 hours. All specime... Discharge Medications Scheduled Gluc Manning/Chondro Manning A/Vit C/Mn (Glucosamine-Chondroitin Cap) 1 Cap Cap, 1 CAP PO DAILY, (Reported) Multivitamin (Multivitamins) 1 Each Tablet, 1 TAB PO DAILY, (Reported) Tamsulosin HCl (Flomax) 0.4 Mg Capsule, 0.4 MG PO QHS Allergies Coded Allergies: Penicillins (Verified Allergy, Mild, HIVES, 06/28/19) ELFEGO KNAPP PA-C Jul 02, 2019 15:19
== END 2019-07-02 11:10 | disposition home or self-care (01) | DRG 710 ==
LOC: M ED 17:32 → M ED INP 21:18 → ENRESERV 22:48 → M MSPAV 06-29 01:03
PROVIDERS: ADMIT General Practice; ATTEND Internal Medicine Nephrology
PROC: 0W9H30Z Drainage of Retroperitoneum with Drainage Device, Percutaneous Approach (ICD-10-PCS; 2019-06-30)
PROC: BT0 Imaging, Urinary System, Plain Radiography (ICD-10-PCS; 2019-07-01)
PROC: 0T778DZ Dilation of Left Ureter with Intraluminal Device, Via Natural or Artificial Opening Endoscopic (ICD-10-PCS; principal; 2019-07-01 16:00)
DX: A41.9 Sepsis, unspecified organism (principal); N15.1 Renal and perinephric abscess; N17.9 Acute kidney failure, unspecified; N28.1 Cyst of kidney, acquired; N13.30 Unspecified hydronephrosis; N40.1 Benign prostatic hyperplasia with lower urinary tract symptoms; N28.89 Other specified disorders of kidney and ureter; R39.11 Hesitancy of micturition; Z85.818 Personal history of malignant neoplasm of other sites of lip, oral cavity, and pharynx; Z92.21 Personal history of antineoplastic chemotherapy; Z92.3 Personal history of irradiation; Z88.0 Allergy status to penicillin; Z79.899 Other long term (current) drug therapy

== ENCOUNTER → 2019-07-08 | Outpatient (REF) | payer BC ==
[~2019-07-08] MED LIST changes: +FLOM0.4C39 PO; +MULT-40 PO
== END ==
LOC: M SMT 17:03
PROVIDERS: ATTEND Urology
DX: N28.1 Cyst of kidney, acquired (principal)

== ENCOUNTER → 2019-07-15 | Outpatient (POV) | payer BC ==
[~2019-07-15] VITALS: Ht 182.9 cm; Wt 81.8 kg
[2019-07-15 09:50] VITALS: BP 125/80
--- NOTE | 2019-07-17 08:23 | IRCOV ---
[facility] IR Consult Office Visit IR Consult Office Visit DATE: Jul 15, 2019 REASON FOR CONSULTATION/CHIEF COMPLAINT: Renal cyst. HISTORY OF PRESENT ILLNESS: 57-year-old male, presented to the hospital in June with 2 weeks of fevers chills and left flank pain. At that time, CT imaging showed a left retroperitoneal abscess for which a percutaneous CT-guided drain was placed. Patient then underwent cystoscopy and retrograde pyelography with urology at which time a ureteral stent was placed. Patient denies pain, fevers or chills. Minimal drainage from the retroperitoneal abscess drain. No prior history of renal cancer. No hematuria. No weight loss or loss of appetite. ALLERGIES: Please see below. HOME MEDICATIONS: Please see below. PAST MEDICAL HISTORY: Jaw cancer status post surgery. Chronic knee and ankle pain PAST SURGICAL HISTORY: Left-sided jaw surgery for cancer Vasectomy Ureteral stent placement June 2019 FAMILY HISTORY: Noncontributory SOCIAL HISTORY: Nonsmoker. Occasional alcohol no drugs. REVIEW OF SYSTEMS: Otherwise negative PHYSICAL EXAMINATION: VITAL SIGNS: Please see below. GENERAL APPEARANCE: Appears well. Comfortable at rest. HEENT: No scleral icterus. RESPIRATORY: Normal breathing at rest. CARDIOVASCULAR: Normal rate. ABDOMEN: Soft nontender. Left flank pigtail drainage catheter with yellow urine like fluid in the bag. EXTREMITIES: Moving all 4 extremities. NEUROLOGICAL: Alert and oriented. PSYCHIATRIC: Appropriate to circumstance. LABORATORY DATA: 07/02/2019 hemoglobin 10.7 hematocrit 31.7 WBC 7.6 platelets 381 sodium 139 potassium 4.0 BUN 18 creatinine 0.89 Imaging: I personally reviewed the CT abdomen pelvis with contrast from March 2017. At that time there was a right renal cyst. The left kidney demonstrates either extrarenal pelvis and/or parapelvic cysts. I reviewed the CT scan with contrast from Jun 2019. Large rim-enhancing multiloculated left retroperitoneal collection with septal enhancement, appears to communicate with the renal collecting system. I reviewed the MRI from June this year. Large multiloculated rim-enhancing fluid collection in the left retroperitoneal space with enhancing septations, appears to communicate with the left renal collecting system. I reviewed the retrograde pyelogram performed Jun 2019. Ureterogram as well as the abscessogram was obtained. The contrast injected during ureterogram appears to fill the same space as the abscessogram. ASSESSMENT/PLAN: 59-year-old male with multiloculated lesion in the left retroperitoneal space of undetermined etiology which appears to communicate with the left renal collecting system. If this cyst and/or unknown lesion communicates with the collecting system, it is not amenable to sclerotherapy. I will perform a pigtail drainage catheter check to evaluate further. If this is an infected urinoma, the ureteral stent through diversion of urine would be the appropriate treatment. Other differential includes cystic malignancy for which biopsy and/or surgical evaluation may be required. We have scheduled the patient for a drain check. I spent 30 minutes in consultation with the patient. Thank you for this referral. CC Dr. Chad De Jesusurology Dr. Da Silvaurologrober Allergies Coded Allergies: Penicillins (Verified Allergy, Mild, HIVES, 06/28/19) Home Medications Scheduled Gluc Manning/Chondro Manning A/Vit C/Mn (Glucosamine-Chondroitin Cap), 1 CAP PO DAILY, (Reported) Multivitamin (Multivitamins), 1 TAB PO DAILY, (Reported) Tamsulosin HCl (Flomax), 0.4 MG PO QHS VS, I&O, 24H, Fishbone Vital Signs/I&O Vital Signs Date Time Temp Pulse Resp B/P (MAP) Pulse Ox O2 Delivery O2 Flow Rate FiO2 07/15/19 09:50 97.8 75 18 125/80 (95) 97 Room Air ARIELLA WEISS MD Jul 17, 2019 08:23
== END ==
LOC: M IRPOV 09:41
PROVIDERS: ATTEND Radiology Diagnostic Radiology
DX: K68.9 Other disorders of retroperitoneum (principal); Z85.818 Personal history of malignant neoplasm of other sites of lip, oral cavity, and pharynx

== ENCOUNTER → 2019-07-17 | Outpatient (CLI) | payer BC ==
[~2019-07-17] MED LIST changes: +ISOVUE-300 61% 50ML VIAL (Q9967) As Ordered ONE; +LIDOCAINE 1% MDV 20ML VIAL As Ordered ONE; +MIDAZOLAM INJ 2 MG/2 ML VIAL (J2250) As Ordered ONE; +cefTRIAXone SOD 1 GM VIAL (J0696) As Ordered ONE; +diphenhydrAMINE INJ 50MG/ML VIAL (J1200) As Ordered ONE; +fentaNYL 100 MCG/2 ML INJECTION (J3010) As Ordered ONE
--- NOTE | 2019-07-17 14:23 | IRHP ---
[facility] IR Pre-Procedure H & P General Date of Service: Jul 17, 2019 Procedure: Same Day Surgery Interval History and Physical I have seen the patient and reviewed last H & P performed within 30 days. There is no significant interval change. History of Present Illness Chief Complaint The patient is a 59-year-old male admitted with a reason for visit of Possible Renal Cyst. PRE-PROCEDURE DIAGNOSIS: renal cyst HEART: normal rate. LUNGS: normal breathing at rest. ASA Classification ASA Classification: II-Mild systemic disease Mallampati Score: II NPO: Yes Problems with prior sedation: No Obstructive Sleep Apnea: No Plan moderate sedation Allergies Coded Allergies: Penicillins (Verified Allergy, Mild, HIVES, 06/28/19) Home Medications Scheduled Gluc Manning/Chondro Manning A/Vit C/Mn (Glucosamine-Chondroitin Cap), 1 CAP PO DAILY, (Reported) Multivitamin (Multivitamins), 1 TAB PO DAILY, (Reported) Tamsulosin HCl (Flomax), 0.4 MG PO QHS VS, I&O, 24H, Fishbone Vital Signs/I&O Vital Signs Date Time Temp Pulse Resp B/P (MAP) Pulse Ox O2 Delivery O2 Flow Rate FiO2 07/17/19 14:11 98.1 69 18 100 Room Air ARIELLA WEISS MD Jul 17, 2019 14:23
--- NOTE | 2019-07-17 15:21 | REP ---
IR catheter check. IR moderate sedation. Clinical information: Left-sided hydronephrosis and retroperitoneal abscess. Possible cyst. Physician: Dr. Abreu. Procedure: The patient was advised of the benefits, risks and alternatives of the procedure and informed consent was obtained. The time-out was performed with verification of the patient's name, MRN, site of procedure and type of procedure to be performed. The patient was positioned in the prone position on the angiographic table. The site was prepped and draped in the usual sterile fashion. Moderate sedation was performed by the physician including the presence of an independent trained observer who assisted in monitoring the patient's level of consciousness and physiologic status. Following the administration of Versed and Fentanyl, the physician spent 30 minutes of continuous face to face time with the patient. A land title examiner radiograph reveals a right retroperitoneal pigtail drainage catheter. A right ureteral stent. The catheter was injected with contrast but was occluded. A wire was advanced through the catheter into the previous cavity and the catheter was removed over the wire. A kumpe catheter was advanced over the wire under fluoroscopy guidance into the previously drained cavity. Injection of contrast through the catheter confirmed no residual cavity in this area. There is back tracking of contrast through the tract to the skin. No communication with the renal collecting system. The catheter was removed, pressure held and hemostasis achieved. A sterile dressing was applied to the site. The patient tolerated the procedure well and was returned to the [facility] in stable condition. EBL: Less than 5 ml. Complications: None. Impression: 1. Abscessogram demonstrates no residual cavity. No communication with renal collecting system. 2. Drainage catheter was removed. Patient to follow up in IR clinic in 1 month with imaging. Thank you this referral. Cc Dr. Chad Boswell Electronically Signed by Trisha Abreu MD 07/17/2019 03:19 P
[2019-07-17 15:45] VITALS: BP 166/102
== END ==
LOC: M IRPRO 13:19
PROVIDERS: ATTEND Radiology Diagnostic Radiology
DX: N13.30 Unspecified hydronephrosis (principal); K68.19 Other retroperitoneal abscess; Z88.0 Allergy status to penicillin
CPT/HCPCS: 49422; 49424; 76080; 99152; 99153; C1769; C1887; J0696; J2250; J3010; Q9967

== ENCOUNTER → 2019-09-02 | Outpatient (POV) | payer BC ==
[~2019-09-02] MED LIST changes: -ISOVUE-300 61% 50ML VIAL (Q9967) As Ordered ONE; -LIDOCAINE 1% MDV 20ML VIAL As Ordered ONE; -MIDAZOLAM INJ 2 MG/2 ML VIAL (J2250) As Ordered ONE; -cefTRIAXone SOD 1 GM VIAL (J0696) As Ordered ONE; -diphenhydrAMINE INJ 50MG/ML VIAL (J1200) As Ordered ONE; -fentaNYL 100 MCG/2 ML INJECTION (J3010) As Ordered ONE
--- NOTE | 2019-09-03 14:17 | IRPN ---
[facility] IR Progress Note IR Progress Note DATE: Sep 02, 2019 FOLLOW-UP: patient with history of left retroperitoneal abscess and left renal cysts or cystic malignancy, previously seen by urology and then had drain placed by [facility]. Drain check showed no cavity remaining and no communication with left renal collecting system. Now weeks after drain removal with no complaints. No pain, no fevers, no hematuria. Imaging: Non recent IMPRESSION: Patient with history of left retroperitoneal abscess/ renal cysts or cystic malignancy status post evaluation by urology and status post drainage by [facility]. Patient to follow up with PCP. Suggest repeat CT imaging and on going surveillance. No further follow up scheduled with IR unless requested by patient and/or referring provider. 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 Thank you for this referral CC PCP Urology Dr De Jesus Allergies Coded Allergies: Penicillins (Verified Allergy, Mild, HIVES, 06/28/19) ARIELLA WEISS MD Sep 03, 2019 14:17
== END ==
LOC: M TMIRPOV 11:42
PROVIDERS: ATTEND Radiology Diagnostic Radiology
DX: Z87.448 Personal history of other diseases of urinary system (principal)

== ENCOUNTER → 2019-10-15 | Outpatient (CLI) | payer BC ==
[~2019-10-15] MED LIST changes: +ISOVUE-370 76% 100ML VIAL As Ordered ONE
--- NOTE | 2019-10-16 15:37 | REP ---
Clinical: Followup renal cyst. Technique: Axial precontrast, contrast enhanced, and delayed images of the abdomen using 100 ml Isovue 370 intravenous contrast material with coronal and sagittal re-formations. Comparison: 06/28/2019. Findings: Evaluation of the kidneys demonstrate few small bilateral simple central parapelvic cysts along with 7.2 cm round simple anterior right renal cyst. The kidneys are otherwise normal and without nephroureterolithiasis, hydroureteronephrosis, or renal mass lesion. The previously noted cystic mass/ multiseptated abscess involving the left kidney is no longer present. Liver, spleen, pancreas, gallbladder, and bilateral adrenal glands are normal. Visualized portions of the enteric system are unremarkable. No ascites. No obvious adenopathy or mass lesion. Abdominal aorta demonstrates atherosclerotic changes without aneurysm or dissection. Surrounding musculoskeletal structures are intact without acute osseous abnormality. Lung bases are relatively clear. Impression: 1. 7.2 cm simple appearing right renal cyst along with small bilateral peripelvic cysts. Previously noted multi septated mass/abscess involving the left kidney and perinephric space is no longer present. Electronically Signed by Gerardo Stout MD 10/16/2019 03:29 P
== END ==
LOC: M RAD 15:59
PROVIDERS: ATTEND Radiology Diagnostic Radiology
DX: N28.1 Cyst of kidney, acquired (principal)
CPT/HCPCS: 74160; Q9967

== ENCOUNTER → 2021-07-25 | Outpatient (CLI) | payer BC ==
[~2021-07-25] MED LIST changes: -ISOVUE-370 76% 100ML VIAL As Ordered ONE
== END ==
LOC: M RAD 13:36
PROVIDERS: ATTEND Internal Medicine
DX: N28.1 Cyst of kidney, acquired (principal)

== ENCOUNTER → 2023-06-01 | Outpatient (CLI) | payer OTHER ==
[~2023-06-01] MED LIST changes: +NYST-38 SS; -NYST50SS SS
== END ==
LOC: M RAD 09:38
PROVIDERS: ATTEND Internal Medicine
DX: M75.91 Shoulder lesion, unspecified, right shoulder (principal)